=== PATIENT | male | born 1965 | race Hispanic/Latino ===

== ENCOUNTER 2016-10-11 17:08 | Emergency (ER) | payer MEDICARE ==
[2016-10-11 17:08] VITALS: BMI 32.5
[2016-10-11 17:24] VITALS: RESP 18; TEMP 99.5
[2016-10-11 18:17] VITALS: BP 137/96; PULSE 92
[2016-10-11 18:18] VITALS: O2SAT 99
--- NOTE | 2016-10-11 18:18 | C.PDOC ---
History Of Present Illness Patient, a 51 y/o male, presents to the ED with complaints of anxiety and needs his dose of Xanax. Patient states he usually take Xanax 0.25mg every day as needed. He states he left medicine at home and is visiting family. Patient feeling very anxious and just needs one dose. Time Seen by Provider: 10/11/16 17:48 Chief Complaint (Nursing): Anxiety History Per: Patient History/Exam Limitations: no limitations Onset/Duration Of Symptoms: Hrs Current Symptoms Are (Timing): Still Present Suicide/Self Injury Attempted (Context): None Modifying Factor(s): None Associated Symptoms: denies: Suicidal Thoughts, Suicidal Plan Involuntary Hold By: None Additional History Per: Patient Past Medical History Reviewed: Historical Data, Nursing Documentation, Vital Signs Vital Signs: Last Vital Signs Temp 99.5 F 10/11/16 17:20 Pulse 92 H 10/11/16 18:17 Resp 18 10/11/16 18:17 BP 137/96 H 10/11/16 18:17 Pulse Ox 99 10/11/16 18:47 - Medical History PMH: Arthritis, Back Problems, Bipolar Disorder, Depression, Deep Vein Thrombosis (LEFT LEG 2013), HTN, Hypercholesterolemia, Hypothyroidism, Kidney Stones, Pulmonary Embolism (2013), Chronic Kidney Disease, Schizophrenia, Chronic Pain (Neck, Back, and Right Hip) Denies: Hyperthyroidism Surgical History: Cholecystectomy (2013) - [facility] Procedures ANESTH INJEC PERIPH NERV (01/12/14) ANESTH INJECT SYMP NERVE (05/18/14) ANESTH INJECT-SPIN CANAL (09/22/13) CERVICAL SPINE X-RAY NEC (09/22/13) CONTRAST PHLEBOGRAM-LEG (06/17/13) INJECT STEROID (01/26/14) INJECT/INFUSE NEC (01/29/12) INJECT/INFUSE THROMBOLYTIC AGENT (06/17/13) INJECTION INTO JOINT (01/26/14) INTRASPIN NERVE ROOT DIV (10/20/13) LUMBOSAC SPINE X-RAY NEC (05/18/14) OTHER ENDOVASCULAR PROCEDURES ON OTHER VESSELS (06/17/13) PERIPH NERVE DESTRUCTION (10/20/13) PLICATION OF VENA CAVA (06/17/13) SPINAL CANAL INJECT NEC (09/22/13) SYMPATH NERVE INJECT NEC (09/04/11) VENA CAV ANGIOCARDIOGRAM (06/17/13) X-RAY NEC AND NOS (11/24/13) Family History: States: Unknown Family Hx - Social History Hx Tobacco Use: Yes Hx Alcohol Use: No 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) - Immunization History Hx Tetanus Toxoid Vaccination: No Hx Influenza Vaccination: Yes Hx Pneumococcal Vaccination: Yes Review Of Systems Psych: Positive for: Anxiety Physical Exam - Physical Exam Appears: Non-toxic, No Acute Distress, Other (+anxious mood ) Skin: Normal Color, Warm, Dry Head: Atraumatic, Normacephalic Eye(s): bilateral: Normal Inspection Oral Mucosa: Moist Neck: Supple Chest: Symmetrical, No Deformity, No Tenderness Cardiovascular: Rhythm Regular, No Murmur Respiratory: Normal Breath Sounds, No Rales, No Rhonchi, No Wheezing Extremity: Normal ROM Neurological/Psych: Oriented x3, Normal Speech Gait: Steady ED Course And Treatment O2 Sat by Pulse Oximetry: 99 (on RA) Pulse Ox Interpretation: Normal Medical Decision Making Medical Decision Making: Impression: Anxiety NJRx reviewed: 09/17/2016 ALPRAZOLAM 0.5 MG TABLET 120.0 09/14/2016 SUBOXONE 8 MG-2 MG SL FILM 60.0 08/12/2016 ALPRAZOLAM 0.5 MG TABLET 120.0 08/12/2016 SUBOXONE 8 MG-2 MG SL FILM 60.0 Plan/Dispo: Xanax 0.25mg given with relief of symptoms. BP improved. Patient is alert and oriented, calm and cooperative, stable for discharge. Disposition Counseled Patient/Family Regarding: Diagnosis, Need For Followup - Disposition Referrals: Aniket Combs MD [Staff Provider] - Disposition: HOME/ ROUTINE Disposition Time: 18:16 Condition: STABLE Additional Instructions: Follow up with your primary medical doctor or clinic in 2-5 days for further evaluation. 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 - Scribe Statement The provider has reviewed the documentation as recorded by the Scribe (Kristin Vides) All medical record entries made by the Scribe were at my direction and personally dictated by me. I have reviewed the chart and agree that the record accurately reflects my personal performance of the history, physical exam, medical decision making, and the department course for this patient. I have also personally directed, reviewed, and agree with the discharge instructions and disposition.
== END 2016-10-11 18:20 | disposition home or self-care (01) ==
LOC: C.ER 17:08
DX: F41.9 Anxiety disorder, unspecified (principal)

== ENCOUNTER 2016-10-12 10:48 | Emergency (ER) | payer MEDICARE ==
[2016-10-12 10:48] VITALS: BMI 32.5
[2016-10-12 11:00] VITALS: BP 129/90; PULSE 100; RESP 18; TEMP 98.1; O2SAT 97
--- NOTE | 2016-10-12 11:44 | C.PDOC ---
History Of Present Illness Patient, a 51 y/o male, presents to the ED with complaints of anxiety and needs his dose of Xanax. Patient states he usually take Xanax 0.25mg every day as needed. He states he left medicine at home and is visiting family, he cannot get back to his home because of holiday. Patient feeling very anxious and just needs one dose. Patient was just seen in ED yesterday. Time Seen by Provider: 10/12/16 11:27 Chief Complaint (Nursing): Medical Clearance History Per: Patient History/Exam Limitations: no limitations Onset/Duration Of Symptoms: Hrs Current Symptoms Are (Timing): Still Present Severity: Moderate Recent travel outside of the [place]: No Past Medical History Reviewed: Historical Data, Nursing Documentation, Vital Signs Vital Signs: Last Vital Signs Temp 98.1 F 10/12/16 10:58 Pulse 100 H 10/12/16 10:58 Resp 18 10/12/16 10:58 BP 129/90 10/12/16 10:58 Pulse Ox 97 10/12/16 11:49 - Medical History PMH: Anxiety, Arthritis, Back Problems, Bipolar Disorder, Depression, Deep Vein Thrombosis (LEFT LEG 2013), HTN, Hypercholesterolemia, Hypothyroidism, Kidney Stones, Pulmonary Embolism (2013), Chronic Kidney Disease, Schizophrenia, Chronic Pain (Neck, Back, and Right Hip) Surgical History: Cholecystectomy (2013) - [facility] Procedures ANESTH INJEC PERIPH NERV (01/12/14) ANESTH INJECT SYMP NERVE (05/18/14) ANESTH INJECT-SPIN CANAL (09/22/13) CERVICAL SPINE X-RAY NEC (09/22/13) CONTRAST PHLEBOGRAM-LEG (06/17/13) INJECT STEROID (01/26/14) INJECT/INFUSE NEC (01/29/12) INJECT/INFUSE THROMBOLYTIC AGENT (06/17/13) INJECTION INTO JOINT (01/26/14) INTRASPIN NERVE ROOT DIV (10/20/13) LUMBOSAC SPINE X-RAY NEC (05/18/14) OTHER ENDOVASCULAR PROCEDURES ON OTHER VESSELS (06/17/13) PERIPH NERVE DESTRUCTION (10/20/13) PLICATION OF VENA CAVA (06/17/13) SPINAL CANAL INJECT NEC (09/22/13) SYMPATH NERVE INJECT NEC (09/04/11) VENA CAV ANGIOCARDIOGRAM (06/17/13) X-RAY NEC AND NOS (11/24/13) Family History: States: Unknown Family Hx - Social History Hx Tobacco Use: Yes Hx Alcohol Use: No 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) - Immunization History Hx Tetanus Toxoid Vaccination: No Hx Influenza Vaccination: Yes Hx Pneumococcal Vaccination: Yes Review Of Systems Psych: Positive for: Anxiety Physical Exam - Physical Exam Appears: Non-toxic, No Acute Distress, Other (anxious mood) Skin: Warm, Dry Head: Atraumatic, Normacephalic Eye(s): bilateral: Normal Inspection Chest: Symmetrical Respiratory: No Accessory Muscle Use Extremity: Bilateral: Atraumatic, Normal ROM Neurological/Psych: Oriented x3, Normal Speech Gait: Steady ED Course And Treatment O2 Sat by Pulse Oximetry: 97 (room air) Pulse Ox Interpretation: Normal Medical Decision Making Medical Decision Making: Spoke with ER director Dr English who agrees cannot give another dose, based on pain policy. Gave patient information for [facility] and he was understanding. Disposition - Disposition Disposition: HOME/ ROUTINE Disposition Time: 11:50 Condition: STABLE Instructions: Anxiety (ED) - POA Present On Arrival: None - Clinical Impression Clinical Impression: Anxiety, Medication requested - PA / DATA MODELING SPECIALIST / Resident Statement MD/DO has reviewed & agrees with the documentation as recorded. - Scribe Statement The provider has reviewed the documentation as recorded by the Scribe Akash Vinson All medical record entries made by the Scribe were at my direction and personally dictated by me. I have reviewed the chart and agree that the record accurately reflects my personal performance of the history, physical exam, medical decision making, and the department course for this patient. I have also personally directed, reviewed, and agree with the discharge instructions and disposition.
== END 2016-10-12 12:00 | disposition home or self-care (01) ==
LOC: C.ER 10:48
DX: Z76.0 Encounter for issue of repeat prescription (principal); F41.9 Anxiety disorder, unspecified

== ENCOUNTER 2016-10-13 02:16 | Emergency (ER) | payer MEDICAID, MEDICARE ==
[2016-10-13 02:17] VITALS: BMI 32.5
[2016-10-13 02:37] VITALS: RESP 16
--- NOTE | 2016-10-13 04:23 | C.PDOC ---
History Of Present Illness 51 year old male presents to the ED seeking dose of medication in ED for anxiety since he ran out of medications at home- Xanax 0.5 medications. Patient notes a history of depression and has a refill of Xanax 0.5 mg in pharmacy . He admits to being to the ED twice before for similar reasons and requested the same medication. Patient's doctor, Dr. Romero, advised patient to wait for refill of medications or to follow up with psychiatrist. Patient denies any chest pain, shortness or breath, or other complaints at this time. Time Seen by Provider: 10/13/16 03:01 Chief Complaint (Nursing): Med Refill History Per: Patient History/Exam Limitations: no limitations Onset/Duration Of Symptoms: Persistent (depression and anxiety are persistent, visit prompted by running out of medications ) Current Symptoms Are (Timing): Still Present Reports Recently: Seen In ED, Treated By A Physician Recent travel outside of the [place]: No Past Medical History Reviewed: Historical Data, Nursing Documentation, Vital Signs Vital Signs: Last Vital Signs Temp 98.4 F 10/13/16 04:43 Pulse 87 10/13/16 04:43 Resp 16 10/13/16 04:43 BP 147/94 H 10/13/16 04:43 Pulse Ox 98 10/13/16 06:20 - Medical History PMH: Anxiety, Arthritis, Back Problems, Bipolar Disorder, Depression, Deep Vein Thrombosis (LEFT LEG 2013), HTN, Hypercholesterolemia, Hypothyroidism, Kidney Stones, Pulmonary Embolism (2013), Chronic Kidney Disease, Schizophrenia, Chronic Pain (Neck, Back, and Right Hip) Surgical History: Cholecystectomy (2013) - [facility] Procedures ANESTH INJEC PERIPH NERV (01/12/14) ANESTH INJECT SYMP NERVE (05/18/14) ANESTH INJECT-SPIN CANAL (09/22/13) CERVICAL SPINE X-RAY NEC (09/22/13) CONTRAST PHLEBOGRAM-LEG (06/17/13) INJECT STEROID (01/26/14) INJECT/INFUSE NEC (01/29/12) INJECT/INFUSE THROMBOLYTIC AGENT (06/17/13) INJECTION INTO JOINT (01/26/14) INTRASPIN NERVE ROOT DIV (10/20/13) LUMBOSAC SPINE X-RAY NEC (05/18/14) OTHER ENDOVASCULAR PROCEDURES ON OTHER VESSELS (06/17/13) PERIPH NERVE DESTRUCTION (10/20/13) PLICATION OF VENA CAVA (06/17/13) SPINAL CANAL INJECT NEC (09/22/13) SYMPATH NERVE INJECT NEC (09/04/11) VENA CAV ANGIOCARDIOGRAM (06/17/13) X-RAY NEC AND NOS (11/24/13) Family History: States: Unknown Family Hx - Social History Hx Tobacco Use: Yes Hx Alcohol Use: No 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 Negative for : Suicidal ideation Physical Exam - Physical Exam Appears: Non-toxic, No Acute Distress, Other (patient appears anxious ) Skin: Warm, Dry Head: Atraumatic Eye(s): bilateral: Normal Inspection, PERRL, EOMI Oral Mucosa: Moist Neck: Supple Chest: Symmetrical, No Deformity Cardiovascular: Rhythm Regular Respiratory: Normal Breath Sounds, No Rales, No Rhonchi, No Wheezing Extremity: Normal ROM, No Tenderness, Other (Hands tremulous ) Neurological/Psych: Oriented x3, Normal Speech, Normal Cognition Gait: Steady ED Course And Treatment O2 Sat by Pulse Oximetry: 98 Pulse Ox Interpretation: Normal Progress Note: Pt appears very anxious,was given 1 dose of xanax in ED.Pt understands that no further prescription will begiven and he agreed to that. Pt advised to get meds from pharmacy on wednesday and to follow up with his psychiatrist Disposition Counseled Patient/Family Regarding: Diagnosis, Need For Followup, Rx Given - Disposition Disposition: HOME/ ROUTINE Disposition Time: 04:21 Condition: STABLE Additional Instructions: Please get your refill Follow up with PMD for management Return if worse Instructions: Anxiety (ED) - Clinical Impression Clinical Impression: Anxiety, Review of medication - Scribe Statement The provider has reviewed the documentation as recorded by the Scribe Tammi Bui All medical record entries made by the Scribe were at my direction and personally dictated by me. I have reviewed the chart and agree that the record accurately reflects my personal performance of the history, physical exam, medical decision making, and the department course for this patient. I have also personally directed, reviewed, and agree with the discharge instructions and disposition.
[2016-10-13 04:44] VITALS: BP 147/94; PULSE 87; TEMP 98.4
[2016-10-13 06:14] VITALS: O2SAT 98
== END 2016-10-13 04:43 | disposition home or self-care (01) ==
LOC: C.ER 02:16
DX: F41.9 Anxiety disorder, unspecified (principal)

== ENCOUNTER 2016-10-22 11:17 | Inpatient (IN) | payer MEDICARE ==
[2016-10-22 11:18] VITALS: BMI 32.5
--- NOTE | 2016-10-22 11:59 | C.PDOC ---
History Of Present Illness 51 yr old male with PMHx of bipolar disorder, presents to the ER stating he feels like " ending it all and feeling down". Patient denies fever, chest pain, SOB, weakness or numbness. Time Seen by Provider: 10/22/16 11:50 Chief Complaint (Nursing): Psychiatric Evaluation History Per: Patient History/Exam Limitations: no limitations Onset/Duration Of Symptoms: Sudden Onset Current Symptoms Are (Timing): Still Present Past Medical History Reviewed: Historical Data, Nursing Documentation, Vital Signs Vital Signs: Last Vital Signs Temp 98.9 F 10/22/16 13:29 Pulse 77 10/22/16 13:29 Resp 16 10/22/16 13:29 BP 146/91 H 10/22/16 13:29 Pulse Ox 99 10/22/16 13:29 - Medical History PMH: Anxiety, Arthritis, Back Problems, Bipolar Disorder, Depression, Deep Vein Thrombosis (LEFT LEG 2013), HTN, Hypercholesterolemia, Hypothyroidism, Kidney Stones, Pulmonary Embolism (2013), Chronic Kidney Disease, Schizophrenia, Chronic Pain (Neck, Back, and Right Hip) Surgical History: Cholecystectomy (2013) - [facility] Procedures ANESTH INJEC PERIPH NERV (01/12/14) ANESTH INJECT SYMP NERVE (05/18/14) ANESTH INJECT-SPIN CANAL (09/22/13) CERVICAL SPINE X-RAY NEC (09/22/13) CONTRAST PHLEBOGRAM-LEG (06/17/13) INJECT STEROID (01/26/14) INJECT/INFUSE NEC (01/29/12) INJECT/INFUSE THROMBOLYTIC AGENT (06/17/13) INJECTION INTO JOINT (01/26/14) INTRASPIN NERVE ROOT DIV (10/20/13) LUMBOSAC SPINE X-RAY NEC (05/18/14) OTHER ENDOVASCULAR PROCEDURES ON OTHER VESSELS (06/17/13) PERIPH NERVE DESTRUCTION (10/20/13) PLICATION OF VENA CAVA (06/17/13) SPINAL CANAL INJECT NEC (09/22/13) SYMPATH NERVE INJECT NEC (09/04/11) VENA CAV ANGIOCARDIOGRAM (06/17/13) X-RAY NEC AND NOS (11/24/13) Family History: States: No Known Family Hx - Social History Hx Tobacco Use: Yes Hx Alcohol Use: No 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) - Immunization History Hx Tetanus Toxoid Vaccination: No Hx Influenza Vaccination: Yes Hx Pneumococcal Vaccination: Yes Review Of Systems Except As Marked, All Systems Reviewed And Found Negative. Constitutional: Negative for: Fever Cardiovascular: Negative for: Chest Pain Respiratory: Negative for: Shortness of Breath Neurological: Negative for: Weakness, Numbness Psych: Positive for: Suicidal ideation Physical Exam - Physical Exam Appears: Non-toxic, No Acute Distress Skin: Warm, Dry Head: Atraumatic, Normacephalic Oral Mucosa: Moist Chest: Symmetrical, No Tenderness Cardiovascular: Rhythm Regular, No Murmur Respiratory: Normal Breath Sounds, No Rales, No Rhonchi, No Stridor, No Wheezing Extremity: Normal ROM, No Swelling Neurological/Psych: Oriented x3, Normal Speech, Normal Motor ED Course And Treatment - Laboratory Results Result Diagrams: 10/22/16 12:05 10/22/16 12:05 O2 Sat by Pulse Oximetry: 98 (RA ) Pulse Ox Interpretation: Normal Medical Decision Making Medical Decision Making: PLAN: * EKG * Drug Screen * Alcohol Serum * CBC * CMP * Urinalysis ekg nsr [address] t wave changes normal intervals. Disposition - Disposition Disposition: HOSPITALIZED Disposition Time: 13:51 Condition: STABLE - Clinical Impression Clinical Impression: Bipolar 1 disorder - Scribe Statement The provider has reviewed the documentation as recorded by the Anastacia Dyson Provider Attestation: All medical record entries made by the Justinibe were at my direction and personally dictated by me. I have reviewed the chart and agree that the record accurately reflects my personal performance of the history, physical exam, medical decision making, and the department course for this patient. I have also personally directed, reviewed, and agree with the discharge instructions and disposition. Decision To Admit - Pt Status Changed To: Hospital Disposition Of: Inpatient - Admit Certification Admit to Inpatient:: After my assessment, the patient will require hospitalization for at least two midnights. This is because of the severity of symptoms shown, intensity of services needed, and/or the medical risk in this patient being treated as an outpatient. - InPatient: Physician Admission Certification: I certify that this patient requires 2 or more midnights of care for the following reason:: pt with si - . Bed Request Type: Psychiatry Admitting Physician: Marlene Dsouza Patient Diagnosis: Bipolar 1 disorder
[2016-10-22 12:12] LABS: URINE BILIRUBIN NEGATIVE (NEGATIVE); URINE BLOOD NEGATIVE (NEGATIVE); URINE CLARITY Clear (Clear); URINE COLOR Yellow (YELLOW); URINE GLUCOSE (UA) NORMAL (Normal); URINE LEUKOCYTE ESTERASE NEG Leu/uL (Negative); URINE NITRATE NEGATIVE (NEGATIVE); URINE PROTEIN NEGATIVE (NEGATIVE); URINE UROBILINOGEN NORMAL mg/dL (0.2-1.0)
[2016-10-22 12:18] LABS: ALBUMIN 3.7 g/dL (3.5-5.0)
[2016-10-22 12:20] LABS: BASO # 0.1 K/uL (0.0-0.2); EOS # 0.1 K/uL (0.0-0.7); EOS % 1.8 % (0.0-4.0); GFR AFRICAN-AMERICAN > 60; GFR NON-AFRICAN AMERICAN > 60; HEMOGLOBIN 11.2 g/dL (12.0-18.0); LYMPH # 1.4 K/uL (1.0-4.3); LYMPH % 26.8 % (20.0-40.0); MEAN CELL VOLUME 93.7 fL (80.0-94.0); MEAN CORPUSCULAR HEMOGLOBIN 30.8 pg (27.0-31.0); MEAN CORPUSCULAR HGB CONC 32.9 g/dL (33.0-37.0); MEAN PLATELET VOLUME 8.6 fL (7.2-11.7); MONO # 0.4 K/uL (0.0-0.8); NEUT # 3.3 K/uL (1.8-7.0); NEUT % 63.4 % (50.0-75.0); RBC 3.65 Mil/uL (4.40-5.90); RED CELL DISTRIBUTION WIDTH 12.8 % (11.5-14.5); WHITE BLOOD COUNT 5.2 K/uL (4.8-10.8)
[2016-10-22 12:21] LABS: ALB/GLOB RATIO 1.3 (1.0-2.1); ALT/SGPT 37 U/L (21-72); AST/SGOT 22 U/L (17-59); BLOOD UREA NITROGEN 9 mg/dL (9-20); CALCIUM 9.1 mg/dl (8.6-10.4)
[2016-10-22 12:22] LABS: ACETAMINOPHEN < 10.0 ug/mL (10.0-30.0); SALICYLATE < 1.0 mg/dL 1
[2016-10-22] MEDS ORDERED: Potassium Chloride 20 mEq ER Tab PO STA (12:22)
[2016-10-22 12:23] LABS: BARBITURATES, UR NEGATIVE (NEGATIVE)
[2016-10-22 12:26] LABS: OPIATES, UR NEGATIVE (NEGATIVE)
[2016-10-22 12:27] LABS: PHENCYCLIDINE, UR NEGATIVE (NEGATIVE)
[2016-10-22 12:44] LABS: BENZODIAZEPINES, UR POSITIVE (NEGATIVE)
[2016-10-22] MEDS ORDERED: Potassium Chloride 20 mEq ER Tab PO ONE (12:58)
[2016-10-22 13:51] VITALS: O2SAT 98
--- NOTE | 2016-10-22 15:15 | PCM.BM ---
<Lois Chaudhari - Last Filed: 10/22/16 15:14> Treatment Plan Problems - Problems identified on initial assessmt Bipolar Date Initiated: 10/22/16 Time Initiated: 15:15 Assessment reference: NA Status: Active Priority: 1 <Lilian Morales - Last Filed: 10/23/16 10:59> - Diagnosis (1) Bipolar 1 disorder Status: Acute Interventions: 10/23/16 11:00 * Assess/adjust medications daily and /or as needed * See patient on an individual basis 7x/week to assess level of manic behaviors and stability * Discuss risks, benefits, side effects and alternatives of medications * <Che Hein - Last Filed: 10/23/16 11:06> Family Contact Family involvement: Patient does not wish Family/SO involvement - Goals for Treatment Patient goals for treatment: "I just want the right meds." Discharge/Continuing Care - Education Needs Education Needs: Patient Medication, Patient Coping Skills - Discharge Discharge Criteria: Tolerates medication w/o severe side effects Discharge to:: Home - Treatment Team Participation Discussed with Family/SO: No Was Patient/Family/SO present at Treatment Team Meeting: Yes
[2016-10-23] MEDS: Levothyroxine 25 MCG TAB PO SCH (05:36)
[2016-10-23 08:11] VITALS: RESP 20
[2016-10-23 08:28] LABS: BLOOD UREA NITROGEN 14 mg/dL (9-20); GFR AFRICAN-AMERICAN > 60; GFR NON-AFRICAN AMERICAN > 60
[2016-10-23 08:29] LABS: CALCIUM 9.3 mg/dl (8.6-10.4); HDL CHOLESTEROL 51 mg/dL (30-70); MAGNESIUM 2.3 mg/dL (1.6-2.3)
[2016-10-23 08:41] LABS: LDL CHOLESTEROL 54 mg/dL (0-129)
[2016-10-23 09:09] LABS: FREE T4 0.78 ng/dL (0.78-2.19)
[2016-10-23] MEDS ORDERED: Ergocalciferol 50,000 Intl Units Cap PO SCH (10:45)
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
[2016-10-24] MEDS: Levothyroxine 25 MCG TAB PO SCH (05:50)
--- NOTE | 2016-10-24 10:37 | PCM.PYCHPN ---
Psychiatric Progress Note - Psychiatric Progress Note Patient seen today, length of contact: 17 min Patient Chief Complaint: I m feeling hyper Problems Identified/Issues Discussed: Patient seen and evaluated, chart reviewed and discussed with the nurse. Patient reports improvement in his mood and reports improvement in the withdrawal symtoms. He denies any auditory or visual hallucinations, but remained irritable and agitated. He still reports racing of thoughts and flight of ideas. He denies any feelings of hopelessness and helplessness. He is taking medication and denied any side effects. Supportive therapy and psychoeducation were given. Medication Change: Yes (start depakote) Medical Record Reviewed: Yes Mental Status Examination - Cognitive Function Orientation: Person, Place, Situation, Time Memory: Intact Attention: WNL Concentration: Poor Association: WNL Fund of Knowledge: Poor - Mood Mood: Anxious, Other (labile) - Affect Affect: Broad, Other (labile) - Speech Speech: Loud - Formal Thought Process Formal Thought Process: No Impairment - Suicidal Ideation Suicidal Ideation: No - Homicidal Ideation Homicidal Ideation: No Goal/Treatment Plan - Goal/Treatment Plan Need for Continued Stay: Discharge may exacerbated symptoms, Severe functional impairment Progress Toward Problem(s) and Goals/Treatment Plan: Bipolar I Disorder - mixed, severe Sedative, hypnotic and anxiolytic use d/o (benzo) Opioid use d/o in early remission Alcohol use d/o in remission Cocaine use d/o - in remission Bipolar: Abilify 15 mg Depakote 250 mg PO BID Continue other meds Add gabapentin Attend groups and activities Indiv tx w CBT Benzos: Short detox [place] for abstinence - Smoking Cessation Smoking Cessation Initiated: No
[2016-10-24] MEDS: Divalproex 250 mg DR Tab PO SCH (17:10)
[2016-10-25] MEDS: Levothyroxine 25 MCG TAB PO SCH (05:48)
[2016-10-25 09:46] VITALS: BP 140/94; PULSE 78; TEMP 98.2
[2016-10-25] MEDS: Divalproex 250 mg DR Tab PO SCH (09:53)
[2016-10-25] MEDS ORDERED: Pneumococcal 23-Valent Vaccine IM ONE (10:00)
--- NOTE | 2016-10-25 10:39 | PCM.PYCHPN ---
Mental Status Examination - Cognitive Function Orientation: Person, Place, Situation, Time - Mood Mood: Anxious, Other (labile) - Affect Affect: Other (labile) - Formal Thought Process Formal Thought Process: No Impairment
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
--- NOTE | 2016-10-25 12:01 | CARD ---
APPROVED REPORT EKG Measurement Heart [id number] <Conclusion> Normal sinus rhythm Normal ECG
[2016-10-25] MEDS ORDERED: Divalproex 500 mg DR Tab PO SCH (18:00)
== END 2016-10-25 12:30 | disposition home or self-care (01) | DRG 885 ==
LOC: C.ER 11:17 → C.5E 13:49
PROVIDERS: ADMIT Psychiatry & Neurology Psychiatry; ATTEND Psychiatry & Neurology Psychiatry
PROC: HZ2ZZZZ Detoxification Services for Substance Abuse Treatment (ICD-10-PCS; principal; 2016-10-22)
DX: F31.63 Bipolar disorder, current episode mixed, severe, without psychotic features (principal); R45.851 Suicidal ideations; I12.9 Hypertensive chronic kidney disease with stage 1 through stage 4 chronic kidney disease, or unspecified chronic kidney disease; F13.90 Sedative, hypnotic, or anxiolytic use, unspecified, uncomplicated; F10.21 Alcohol dependence, in remission; F11.21 Opioid dependence, in remission; F14.21 Cocaine dependence, in remission; E03.9 Hypothyroidism, unspecified; F17.210 Nicotine dependence, cigarettes, uncomplicated; E78.00 Pure hypercholesterolemia, unspecified; N18.9 Chronic kidney disease, unspecified; Z96.641 Presence of right artificial hip joint; F20.9 Schizophrenia, unspecified; Z79.899 Other long term (current) drug therapy; Z86.711 Personal history of pulmonary embolism; Z87.442 Personal history of urinary calculi

== ENCOUNTER 2016-12-15 12:01 | Emergency (ER) | payer MEDICARE ==
[2016-12-15 12:01] VITALS: BMI 32.5
[2016-12-15 12:12] VITALS: BP 127/87; RESP 18; TEMP 98.7; O2SAT 98
--- NOTE | 2016-12-15 12:15 | C.PDOC ---
History Of Present Illness 51M c/o left hip pain after he missed a 5inch drop off while walking and came down forcefully on his left leg. no fall. he denies taking anything for pain at home. he reports hx of arthritis and right hip replacement. he says "I need one on the left too." Time Seen by Provider: 12/15/16 12:13 Chief Complaint (Nursing): Hip Pain Past Medical History Vital Signs: Last Vital Signs Temp 98.7 F 12/15/16 12:09 Pulse 97 H 12/15/16 12:09 Resp 18 12/15/16 12:09 BP 127/87 12/15/16 12:09 Pulse Ox 98 12/15/16 12:28 - Medical History PMH: Anxiety, Arthritis, Back Problems, Bipolar Disorder, Depression, Deep Vein Thrombosis (LEFT LEG 2013), HTN, Hypercholesterolemia, Hypothyroidism, Kidney Stones, Pulmonary Embolism (2013), Chronic Kidney Disease, Schizophrenia, Chronic Pain (Neck, Back, and Right Hip) Denies: Diabetes, Hepatitis, HIV, Hyperthyroidism, Seizures, Sexually Transmitted Disease Surgical History[facility] ANESTH INJEC PERIPH NERV (01/12/14) ANESTH INJECT SYMP NERVE (05/18/14) ANESTH INJECT-SPIN CANAL (09/22/13) CERVICAL SPINE X-RAY NEC (09/22/13) CONTRAST PHLEBOGRAM-LEG (06/17/13) DETOXIFICATION SERVICES FOR SUBSTANCE ABUSE TREATMENT (10/22/16) INJECT STEROID (01/26/14) INJECT/INFUSE NEC (01/29/12) INJECT/INFUSE THROMBOLYTIC AGENT (06/17/13) INJECTION INTO JOINT (01/26/14) INTRASPIN NERVE ROOT DIV (10/20/13) LUMBOSAC SPINE X-RAY NEC (05/18/14) OTHER ENDOVASCULAR PROCEDURES ON OTHER VESSELS (06/17/13) PERIPH NERVE DESTRUCTION (10/20/13) PLICATION OF VENA CAVA (06/17/13) SPINAL CANAL INJECT NEC (09/22/13) SYMPATH NERVE INJECT NEC (09/04/11) VENA CAV ANGIOCARDIOGRAM (06/17/13) X-RAY NEC AND NOS (11/24/13) Family History: States: Other Other Family History: nc - Social History Hx Tobacco Use: Yes Hx Alcohol Use: No Hx Substance Use: No - Immunization History Hx Tetanus Toxoid Vaccination: No Hx Influenza Vaccination: Yes Hx Pneumococcal Vaccination: Yes Review Of Systems Constitutional: Negative for: Fever, Chills, Weakness, Malaise Cardiovascular: Negative for: Chest Pain Respiratory: Negative for: Shortness of Breath Gastrointestinal: Negative for: Vomiting, Abdominal Pain Neurological: Negative for: Weakness, Numbness Physical Exam - Physical Exam Appears: Well, Non-toxic, No Acute Distress Skin: Warm, Dry Head: Atraumatic Cardiovascular: Rhythm Regular Respiratory: No Decreased Breath Sounds, No Accessory Muscle Use Extremity: Normal ROM (left hip nl rom. pain w internal rotation. LLE NVI.), No Deformity, No Swelling Neurological/Psych: Oriented x3, Normal Motor, Normal Sensation, Other (no focl deficits) ED Course And Treatment O2 Sat by Pulse Oximetry: 98 Medical Decision Making Medical Decision Making: xr left hip and ap pelvis- no acute fracture rec f/u w pcp and ortho Disposition - Disposition Disposition: HOME/ ROUTINE Disposition Time: 12:46 Condition: STABLE Forms: [facility] (South African) - Clinical Impression Clinical Impression: Hip pain
[2016-12-15 12:58] VITALS: PULSE 88
--- NOTE | 2016-12-15 13:16 | RAD ---
PROCEDURE: Left hip dated 12/15/2016. HISTORY: pain COMPARISON: Comparison made with prior radiographs of the pelvis apparent right hip 04/26/2014. Comparison also made with CT scan abdomen pelvis 10/29/2015 which image the pelvis and both hips in 3 planes FINDINGS: BONES: Right total hip arthroplasty unchanged from prior CT scan but new since prior pelvis and right hip radiographs. . Hardware is intact. . Satisfactory alignment. No evidence of acute displaced fracture nor dislocation. If symptoms persist or occult fracture suspected clinically consider follow-up MRI of the left hip. JOINTS: Degenerative arthritis left hip SOFT TISSUES: Normal. OTHER FINDINGS: Note again made of metallic surgical clip overlying the mid upper true pelvis IMPRESSION: Right total hip replacement. Hardware appears intact without evidence of failure. Satisfactory alignment. No definitive evidence of acute displaced fracture nor dislocation. Degenerative arthritis left hip. . Followup studies such as MRI could be performed if symptoms persist or occult fracture suspected clinically
== END 2016-12-15 12:58 | disposition home or self-care (01) ==
LOC: C.ER 12:01
DX: M25.552 Pain in left hip (principal)
CPT/HCPCS: 73502; 96372; 99284; J1885

== ENCOUNTER 2016-12-29 16:16 | Emergency (ER) | payer MEDICARE ==
[2016-12-29 16:16] VITALS: BMI 32.5
[2016-12-29 16:22] VITALS: TEMP 98.7
--- NOTE | 2016-12-29 16:38 | C.PDOC ---
History Of Present Illness 51M presents requesting dose of clonazepam. he says does not have access to his current prescription as he left his pills at a house from which he recently moved and cannot access for several days. he says he had an episode of feeling "shaky" and "jittery" earlier today. Time Seen by Provider: 12/29/16 16:36 Chief Complaint (Nursing): Anxiety Past Medical History Vital Signs: Last Vital Signs Temp 98.7 F 12/29/16 16:20 Pulse 110 H 12/29/16 16:20 Resp 20 12/29/16 16:20 BP 165/85 H 12/29/16 16:20 Pulse Ox 97 12/29/16 16:38 - Medical History PMH: Anxiety, Arthritis, Back Problems, Bipolar Disorder, Depression, Deep Vein Thrombosis (LEFT LEG 2013), HTN, Hypercholesterolemia, Hypothyroidism, Kidney Stones, Pulmonary Embolism (2013), Chronic Kidney Disease, Schizophrenia, Chronic Pain (Neck, Back, and Right Hip) Denies: Diabetes, Hepatitis, HIV, Hyperthyroidism, Seizures, Sexually Transmitted Disease Surgical History: Cholecystectomy (2013) - [facility] Procedures ANESTH INJEC PERIPH NERV (01/12/14) ANESTH INJECT SYMP NERVE (05/18/14) ANESTH INJECT-SPIN CANAL (09/22/13) CERVICAL SPINE X-RAY NEC (09/22/13) CONTRAST PHLEBOGRAM-LEG (06/17/13) DETOXIFICATION SERVICES FOR SUBSTANCE ABUSE TREATMENT (10/22/16) INJECT STEROID (01/26/14) INJECT/INFUSE NEC (01/29/12) INJECT/INFUSE THROMBOLYTIC AGENT (06/17/13) INJECTION INTO JOINT (01/26/14) INTRASPIN NERVE ROOT DIV (10/20/13) LUMBOSAC SPINE X-RAY NEC (05/18/14) OTHER ENDOVASCULAR PROCEDURES ON OTHER VESSELS (06/17/13) PERIPH NERVE DESTRUCTION (10/20/13) PLICATION OF VENA CAVA (06/17/13) SPINAL CANAL INJECT NEC (09/22/13) SYMPATH NERVE INJECT NEC (09/04/11) VENA CAV ANGIOCARDIOGRAM (06/17/13) X-RAY NEC AND NOS (11/24/13) Family History: States: Other Other Family History: nc - Social History Hx Tobacco Use: Yes Hx Alcohol Use: No Hx Substance Use: No - Immunization History Hx Tetanus Toxoid Vaccination: No Hx Influenza Vaccination: Yes Hx Pneumococcal Vaccination: Yes Review Of Systems Constitutional: Negative for: Fever Cardiovascular: Negative for: Chest Pain Respiratory: Negative for: Cough, Shortness of Breath Gastrointestinal: Negative for: Vomiting Neurological: Negative for: Confusion, Seizures, Altered Mental Status, Headache Psych: Negative for: Suicidal ideation Physical Exam - Physical Exam Appears: Well, Non-toxic, No Acute Distress Head: Atraumatic Eye(s): bilateral: PERRL Oral Mucosa: Moist Cardiovascular: Rhythm Regular Respiratory: No Decreased Breath Sounds, No Accessory Muscle Use Neurological/Psych: Oriented x3, Normal Motor, Normal Sensation ED Course And Treatment O2 Sat by Pulse Oximetry: 97 Disposition - Disposition Referrals: Anirudh Woo MD [Staff Provider] - Disposition: HOME/ ROUTINE Disposition Time: 17:06 Condition: STABLE Forms: General Discharge Instructions, [facility] (Slovak) - Clinical Impression Clinical Impression: Chronically on benzodiazepine therapy
[2016-12-29 17:25] VITALS: BP 138/85; PULSE 89; RESP 17; O2SAT 98
== END 2016-12-29 17:26 | disposition home or self-care (01) ==
LOC: C.ER 16:16
DX: Z04.8 Encounter for examination and observation for other specified reasons (principal)

== ENCOUNTER 2017-03-31 08:39 | Emergency (ER) | payer MEDICARE ==
[2017-03-31 08:39] VITALS: BMI 32.5
--- NOTE | 2017-03-31 09:45 | C.PDOC ---
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 pt was seen at [facility] last night and discharged with no apprent fx of hip,. pt sts he cannot bear weight and is in excruciating pain. (Brittaney Wang) History Per: Patient History/Exam Limitations: no limitations Onset/Duration Of Symptoms: Days Current Symptoms Are (Timing): Still Present <Brittaney Wang - Last Filed: 03/31/17 19:54> <Kehinde French - Last Filed: 03/31/17 23:06> Time Seen by Provider: 03/31/17 09:09 Chief Complaint (Nursing): Hip Pain Past Medical History Reviewed: Historical Data, Nursing Documentation, Vital Signs - Medical History PMH: Anxiety, Arthritis, Back Problems, Bipolar Disorder, Depression, Deep Vein Thrombosis (LEFT LEG 2013), HTN, Hypercholesterolemia, Hypothyroidism, Kidney Stones, Pulmonary Embolism (2013), Chronic Kidney Disease, Schizophrenia, Chronic Pain (Neck, Back, and Right Hip) Surgical History: Cholecystectomy (2013) Family History: States: No Known Family Hx - Social History Hx Tobacco Use: Yes Hx Alcohol Use: No Hx Substance Use: No - Immunization History Hx Tetanus Toxoid Vaccination: No Hx Influenza Vaccination: Yes Hx Pneumococcal Vaccination: Yes <Brittaney Wang - Last Filed: 03/31/17 19:54> Vital Signs: Last Vital Signs Temp 100.7 F H 03/31/17 22:16 Pulse 97 H 03/31/17 22:16 Resp 18 03/31/17 22:16 BP 145/88 03/31/17 22:16 Pulse Ox 98 03/31/17 22:16 - [facility] Procedures ANESTH INJEC PERIPH NERV (01/12/14) ANESTH INJECT SYMP NERVE (05/18/14) ANESTH INJECT-SPIN CANAL (09/22/13) CERVICAL SPINE X-RAY NEC (09/22/13) CONTRAST PHLEBOGRAM-LEG (06/17/13) DETOXIFICATION SERVICES FOR SUBSTANCE ABUSE TREATMENT (10/22/16) INJECT STEROID (01/26/14) INJECT/INFUSE NEC (01/29/12) INJECT/INFUSE THROMBOLYTIC AGENT (06/17/13) INJECTION INTO JOINT (01/26/14) INTRASPIN NERVE ROOT DIV (10/20/13) LUMBOSAC SPINE X-RAY NEC (05/18/14) OTHER ENDOVASCULAR PROCEDURES ON OTHER VESSELS (06/17/13) PERIPH NERVE DESTRUCTION (10/20/13) PLICATION OF VENA CAVA (06/17/13) SPINAL CANAL INJECT NEC (09/22/13) SYMPATH NERVE INJECT NEC (09/04/11) VENA CAV ANGIOCARDIOGRAM (06/17/13) X-RAY NEC AND NOS (11/24/13) Review Of Systems Cardiovascular: Negative for: Chest Pain Respiratory: Negative for: Shortness of Breath Gastrointestinal: Negative for: Abdominal Pain Musculoskeletal: Positive for: Leg Pain. Negative for: Neck Pain, Back Pain Skin: Negative for: Rash Neurological: Negative for: Weakness, Numbness <Brittaney Wang - Last Filed: 03/31/17 19:54> Physical Exam <Brittaney Wang - Last Filed: 03/31/17 19:54> <Kehinde French - Last Filed: 03/31/17 23:06> - Physical Exam Additional Physical Exam Comments: Constitutional: No acute distress. WDWN. Head: Normocephalic. Atraumatic. Eyes: PERRL. EOMI. ENT: Moist mucous membranes. Neck: Supple. Back: No CVA and no mid-line tenderness. Musculoskeletal: Tenderness to right groin and right hip. 2+femoral pulses. Right leg mildly externally rotated. Skin: No rash. Neurologic: Alert, no focal deficit. Normal motor. Normal sensation (Brittaney Wang) ED Course And Treatment - Laboratory Results Result Diagrams: 03/31/17 18:05 O2 Sat by Pulse Oximetry: 100 (RA) Pulse Ox Interpretation: Normal <Brittaney Wang - Last Filed: 03/31/17 19:54> - Laboratory Results Result Diagrams: 03/31/17 18:05 <Manolo,Jonatan - Last Filed: 03/31/17 23:06> Medical Decision Making <Brittaney Wang - Last Filed: 03/31/17 19:54> <Kehinde French E - Last Filed: 03/31/17 23:06> Medical Decision Making: pt with hip pain s/p fall, hx recent hip fx with hardware, then infected, and partly removed, message left for Dr Kayden Schuler with no response. , message left for Dr Hurtado. will transfer pt to [facility] to Dr Kayden Schuler, await bed assignment for direct admit. . (Brittaney Wang) Disposition Discussed With : Anirudh Woo - Disposition Disposition Time: 16:54 <Brittaney Wang - Last Filed: 03/31/17 19:54> <Kehinde French E - Last Filed: 03/31/17 23:06> - Disposition Disposition: OTHER INSTITUTION Condition: STABLE Forms: [employer] (Lithuanian) - Clinical Impression Clinical Impression: Femur fracture, right - PA / DESK EDITOR / Resident Statement MD/DO has reviewed & agrees with the documentation as recorded. - Scribe Statement The provider has reviewed the documentation as recorded by the Scribe <Brittaney Wang - Last Filed: 03/31/17 19:54> <Kehinde French E - Last Filed: 03/31/17 23:06> - Scribe Statement Marlon Bardales All medical record entries made by the Scribe were at my direction and personally dictated by me. I have reviewed the chart and agree that the record accurately reflects my personal performance of the history, physical exam, medical decision making, and the department course for this patient. I have also personally directed, reviewed, and agree with the discharge instructions and disposition. (Brittaney Wang) Addendum <Brittaney Wang - Last Filed: 03/31/17 19:54> <Kehinde French E - Last Filed: 03/31/17 23:06> Addendum: 03/31/17 23:04 Patient was signed over to Dr. French at 7 pm pending transfer for right hip fracture. Patient was seen and examined, asking for pain medication. Patient was re-evaluated at 10:30 prior to transfer, given pain medication per request. Patient transferred out at approximately 10:45pm. No other physical complaints prior to transfer. (Kehinde French)
[2017-03-31] MEDS ORDERED: Morphine 4 MG/ML VIAL ONE ×2 (10:10→13:54)
--- NOTE | 2017-03-31 15:28 | CT ---
PROCEDURE: CT right hip HISTORY: pain s/p fall, hx infected hardware removed COMPARISON: Not available TECHNIQUE: 2.5 mm contiguous axial sections were acquired through the right hip. Sagittal and coronal images were reformatted from the axial scan. FINDINGS: The patient is status post right hip arthroplasty. The orthopedic hardware appears intact. . There is a comminuted fracture of the proximal femur. The fracture extends from approximately 7 cm distal to the distal aspect of the femoral prosthesis, to the intertrochanteric portion of the femur. There is mild displacement of the fracture, particularly proximally. There are mildly displaced shards of cement adjacent to the greater trochanter. There is no acetabular fracture appreciated. There is no other abnormality of the visualized portions of the right hemipelvis. IMPRESSION: Right hip arthroplasty. Comminuted mildly displaced proximal right femoral fracture. Fracture extends obliquely from approximately 7 cm distal to the distal tip of the femoral prosthesis to the intertrochanteric region of the hip.
--- NOTE | 2017-03-31 15:57 | RAD ---
PROCEDURE: Right Knee Radiographs. HISTORY: s/p fall COMPARISON: None. FINDINGS: BONES: Normal. No fracture. JOINTS: Normal. No osteoarthritis. JOINT EFFUSION: None. OTHER FINDINGS: None. IMPRESSION: Normal radiographs of the right knee.
[2017-03-31] MEDS ORDERED: HYDROmorphone 1 mg/ml ISec IVP STA ×3 (15:58→22:21)
--- NOTE | 2017-03-31 16:03 | RAD ---
PROCEDURE: Right Hip Radiographs. HISTORY: hx infected hardware, removed with spacer COMPARISON: None. FINDINGS: BONES: Patient is status post right hip arthroplasty with reported removal of hardware placement of spacer. . There is comminuted fracture of the proximal femur oriented obliquely adjacent to the prosthesis. The fracture is mildly displaced. There is apparent comminution. There is no other fracture identified. . JOINTS: As above. SOFT TISSUES: Normal. OTHER FINDINGS: None. IMPRESSION: Comminuted oblique mildly displaced proximal right femoral fracture. Status post removal of hardware from right hip arthroplasty and placement of spacer.
[2017-03-31] MEDS ORDERED: WATER IVPB STA (16:53)
[2017-03-31] MEDS ORDERED: CEFTRIAXONE IVPB STA (16:53)
[2017-03-31] MEDS ORDERED: DEXTROS IVPB STA (16:53)
[2017-03-31] MEDS ORDERED: DEXTROSE 5% IVPB STA (16:53)
[2017-03-31] MEDS ORDERED: cefTRIAXone 2 GM in Sodium Chloride 0.9% 100 ML IVPB STA (18:01)
[2017-03-31 18:09] LABS: BASO # 0.1 K/uL (0.0-0.2); EOS # 0.1 K/uL (0.0-0.7); EOS % 1.1 % (0.0-4.0); HEMATOCRIT 31.3 % (35.0-51.0); LYMPH # 1.2 K/uL (1.0-4.3); LYMPH % 16.6 % (20.0-40.0); MEAN CORPUSCULAR HEMOGLOBIN 29.7 pg (27.0-31.0); MEAN CORPUSCULAR HGB CONC 32.8 g/dL (33.0-37.0); MEAN PLATELET VOLUME 8.4 fL (7.2-11.7); MONO # 0.6 K/uL (0.0-0.8); MONO % 8.5 % (0.0-10.0); WHITE BLOOD COUNT 7.3 K/uL (4.8-10.8)
[2017-03-31 18:18] LABS: MEAN CELL VOLUME 90.3 fL (80.0-94.0)
[2017-03-31 21:19] VITALS: O2SAT 98
[2017-03-31 22:18] VITALS: BP 145/88; PULSE 97; RESP 18; TEMP 100.7
[2017-04-01] MEDS ORDERED: Levothyroxine 25 MCG TAB PO SCH (10:00)
== END 2017-03-31 23:04 | disposition short-term general hospital (02) ==
LOC: C.ER 08:39 → UNDOADMOB 16:52 → C.9E 16:52 → C.ER 23:04
DX: S72.91XG Unspecified fracture of right femur, subsequent encounter for closed fracture with delayed healing (principal); W19.XXXD Unspecified fall, subsequent encounter
CPT/HCPCS: 73502; 73562; 73700; 85025; 96372; 96374; 96375; 96376; 99285; J0696; J1170; J2270

== ENCOUNTER 2017-06-06 16:52 | Emergency (ER) | payer MEDICARE ==
[2017-06-06 16:52] VITALS: BMI 32.5
[2017-06-06 17:40] VITALS: RESP 18; TEMP 98.5; O2SAT 97
[2017-06-06] MEDS ORDERED: Naproxen 550 mg Tab PO STA (19:12)
[2017-06-06] MEDS ORDERED: Naproxen 550 mg Tab PO ONE (19:30)
[2017-06-06] MEDS ORDERED: Bacitracin 500 Units/gm Oint Foilpak UD TOP ONE (19:32)
--- NOTE | 2017-06-06 20:00 | C.PDOC ---
History Of Present Illness 51yo male comes in with complaints of chronic hip pain s/p surgery 62 days ago. Patient states hip pain improved, but now he is experiencing right knee pain x50 days. Denies numbness/weakness. Time Seen by Provider: 06/06/17 18:18 Chief Complaint (Nursing): Lower Extremity Problem/Injury History Per: Patient History/Exam Limitations: no limitations Past Medical History Reviewed: Historical Data, Nursing Documentation, Vital Signs Vital Signs: Last Vital Signs Temp 98.5 F 06/06/17 17:34 Pulse 82 06/06/17 20:05 Resp 18 06/06/17 20:05 BP 120/72 06/06/17 20:05 Pulse Ox 97 06/06/17 20:05 - Medical History PMH: Anxiety, Arthritis, Back Problems, Bipolar Disorder, Depression, Deep Vein Thrombosis (LEFT LEG 2013), HTN, Hypercholesterolemia, Hypothyroidism, Kidney Stones, Pulmonary Embolism (2013), Chronic Kidney Disease, Schizophrenia, Chronic Pain (Neck, Back, and Right Hip) Denies: Diabetes, Hepatitis, HIV, Hyperthyroidism, Seizures, Sexually Transmitted Disease Surgical History: Cholecystectomy (2013) - [facility] Procedures ANESTH INJEC PERIPH NERV (01/12/14) ANESTH INJECT SYMP NERVE (05/18/14) ANESTH INJECT-SPIN CANAL (09/22/13) CERVICAL SPINE X-RAY NEC (09/22/13) CONTRAST PHLEBOGRAM-LEG (06/17/13) DETOXIFICATION SERVICES FOR SUBSTANCE ABUSE TREATMENT (10/22/16) INJECT STEROID (01/26/14) INJECT/INFUSE NEC (01/29/12) INJECT/INFUSE THROMBOLYTIC AGENT (06/17/13) INJECTION INTO JOINT (01/26/14) INTRASPIN NERVE ROOT DIV (10/20/13) LUMBOSAC SPINE X-RAY NEC (05/18/14) OTHER ENDOVASCULAR PROCEDURES ON OTHER VESSELS (06/17/13) PERIPH NERVE DESTRUCTION (10/20/13) PLICATION OF VENA CAVA (06/17/13) SPINAL CANAL INJECT NEC (09/22/13) SYMPATH NERVE INJECT NEC (09/04/11) VENA CAV ANGIOCARDIOGRAM (06/17/13) X-RAY NEC AND NOS (11/24/13) Family History: States: No Known Family Hx - Social History Hx Tobacco Use: Yes Hx Alcohol Use: No Hx Substance Use: No - Immunization History Hx Tetanus Toxoid Vaccination: No Hx Influenza Vaccination: Yes Hx Pneumococcal Vaccination: Yes Review Of Systems Musculoskeletal: Positive for: Other (R hip and R knee pain) Neurological: Negative for: Weakness, Numbness Physical Exam - Physical Exam Appears: Well, Non-toxic, No Acute Distress Skin: Warm, Dry, No Rash Extremity: No Tenderness, No Calf Tenderness, Capillary Refill (<2 seconds), No Deformity, No Swelling, Other (large well healed incision to right hip. FROM to B/L lower extremities.) Pulses: Left Femoral: Normal, Right Femoral: Normal, Left Dorsalis Pedis: Normal , Right Dorsalis Pedis: Normal Neurological/Psych: Oriented x3, Normal Speech ED Course And Treatment O2 Sat by Pulse Oximetry: 97 (RA) Pulse Ox Interpretation: Normal Progress Note: Patient treated with Morphine, Bacitracin and Naproxen. Disposition - Disposition Referrals: Anirudh Woo MD [Staff Provider] - Disposition: HOME/ ROUTINE Disposition Time: 19:58 Condition: IMPROVED Additional Instructions: Follow up with the medical doctor with 1-2 days. return if worsened. Instructions: Hip Pain Forms: [employer] (Eritrean) - Clinical Impression Clinical Impression: Knee pain, Hip pain - Scribe Statement The provider has reviewed the documentation as recorded by the Scribe (Valentin Ly) All medical record entries made by the Scribe were at my direction and personally dictated by me. I have reviewed the chart and agree that the record accurately reflects my personal performance of the history, physical exam, medical decision making, and the department course for this patient. I have also personally directed, reviewed, and agree with the discharge instructions and disposition.
[2017-06-06 20:07] VITALS: BP 120/72; PULSE 82
== END 2017-06-06 20:06 | disposition home or self-care (01) ==
LOC: C.ER 16:52
DX: M25.561 Pain in right knee (principal); M25.551 Pain in right hip; E78.00 Pure hypercholesterolemia, unspecified; I12.9 Hypertensive chronic kidney disease with stage 1 through stage 4 chronic kidney disease, or unspecified chronic kidney disease; N18.9 Chronic kidney disease, unspecified; E03.9 Hypothyroidism, unspecified; Z86.711 Personal history of pulmonary embolism; Z86.718 Personal history of other venous thrombosis and embolism; Z72.0 Tobacco use
CPT/HCPCS: 96372; 99284; J2270

== ENCOUNTER 2017-07-09 09:37 | Emergency (ER) | payer MEDICARE ==
[2017-07-09 09:38] VITALS: BMI 32.5
--- NOTE | 2017-07-09 09:51 | C.PDOC ---
History Of Present Illness Patient is a 52 y/o male with a PMHx of hip surgery s/p infection, currently on amoxicillin. He presents to the ER today complaining of a right-sided toothache for 3 days. States he has no fever, and is due to see a dentist. No other complaints at this time. Time Seen by Provider: 07/09/17 09:46 Chief Complaint (Nursing): Dental Pain History Per: Patient History/Exam Limitations: no limitations Onset/Duration Of Symptoms: Days (x3) Current Symptoms Are (Timing): Still Present Past Medical History Reviewed: Historical Data, Nursing Documentation, Vital Signs Vital Signs: Last Vital Signs Temp 98.5 F 07/09/17 09:53 Pulse 115 H 07/09/17 09:53 Resp 20 07/09/17 09:53 BP 110/67 07/09/17 09:53 Pulse Ox 97 07/09/17 11:26 - Medical History PMH: Anxiety, Arthritis, Back Problems, Bipolar Disorder, Depression, Deep Vein Thrombosis (LEFT LEG 2013), HTN, Hypercholesterolemia, Hypothyroidism, Kidney Stones, Pulmonary Embolism (2013), Chronic Kidney Disease, Schizophrenia, Chronic Pain (Neck, Back, and Right Hip) Denies: Diabetes, Hepatitis, HIV, Hyperthyroidism, Seizures, Sexually Transmitted Disease Surgical History: Cholecystectomy (2013) - [facility] Procedures ANESTH INJEC PERIPH NERV (01/12/14) ANESTH INJECT SYMP NERVE (05/18/14) ANESTH INJECT-SPIN CANAL (09/22/13) CERVICAL SPINE X-RAY NEC (09/22/13) CONTRAST PHLEBOGRAM-LEG (06/17/13) DETOXIFICATION SERVICES FOR SUBSTANCE ABUSE TREATMENT (10/22/16) INJECT STEROID (01/26/14) INJECT/INFUSE NEC (01/29/12) INJECT/INFUSE THROMBOLYTIC AGENT (06/17/13) INJECTION INTO JOINT (01/26/14) INTRASPIN NERVE ROOT DIV (10/20/13) LUMBOSAC SPINE X-RAY NEC (05/18/14) OTHER ENDOVASCULAR PROCEDURES ON OTHER VESSELS (06/17/13) PERIPH NERVE DESTRUCTION (10/20/13) PLICATION OF VENA CAVA (06/17/13) SPINAL CANAL INJECT NEC (09/22/13) SYMPATH NERVE INJECT NEC (09/04/11) VENA CAV ANGIOCARDIOGRAM (06/17/13) X-RAY NEC AND NOS (11/24/13) Family History: States: Unknown Family Hx - Social History Hx Tobacco Use: Yes Hx Alcohol Use: No Hx Substance Use: No - Immunization History Hx Tetanus Toxoid Vaccination: No Hx Influenza Vaccination: Yes Hx Pneumococcal Vaccination: Yes Review Of Systems Except As Marked, All Systems Reviewed And Found Negative. Constitutional: Negative for: Fever, Chills ENT: Positive for: Other (right dental pain) Physical Exam - Physical Exam Appears: Non-toxic, No Acute Distress Skin: Normal Color, Warm, Dry, No Rash Head: Atraumatic, Normacephalic Eye(s): bilateral: Normal Inspection, PERRL, EOMI Oral Mucosa: Moist Teeth: Caries (Right side with multiple caries), Other (Minimal right sided swelling, no buccalswelling or fluctuance noted) Gingiva: Normal Appearing, No Abscess Neck: Normal ROM, Supple Neurological/Psych: Oriented x3, Normal Speech ED Course And Treatment O2 Sat by Pulse Oximetry: 97 (RA) Pulse Ox Interpretation: Normal Medical Decision Making Medical Decision Making: Impression: Toothache Time: 10:05 Plan: Patient treated with IM toradol and initial dose of Augmentin in the ED Patient is medically stable. Advised to follow up with dentist in 1-2 days without fail Patient provided with prescriptions for Augmentin and Naproxen Disposition Counseled Patient/Family Regarding: Diagnosis, Need For Followup, Rx Given - Disposition Referrals: [facility] [Outside] [place] [facility] [employer] [Outside] Disposition: HOME/ ROUTINE Disposition Time: 10:12 Condition: STABLE Additional Instructions: please see you dentist. return to er with worsening symptoms or concerns. Prescriptions: Amoxicillin/Clavulanate [Augmentin 875 MG-125 MG] 1 tab PO BID #14 tab Naproxen [Naprosyn] 500 mg PO BID PRN #14 tablet PRN Reason: Pain, Mild (1-3) Instructions: Tooth Abscess (DC), Dental Pain Forms: [employer] (Kazakh) - Clinical Impression Clinical Impression: Toothache - Scribe Statement The provider has reviewed the documentation as recorded by the Scribe (Maria Isabel Staley) Provider Attestation: All medical record entries made by the Scribe were at my direction and personally dictated by me. I have reviewed the chart and agree that the record accurately reflects my personal performance of the history, physical exam, medical decision making, and the department course for this patient. I have also personally directed, reviewed, and agree with the discharge instructions and disposition.
[2017-07-09 09:54] VITALS: BP 110/67; PULSE 115; RESP 20; TEMP 98.5; O2SAT 97
[2017-07-09] MEDS ORDERED: Amoxicillin-Clav 875-125 mg Tab PO STA (10:06)
[2017-07-09] MEDS ORDERED: Amoxicillin-Clav 875-125 mg Tab PO ONE (10:13)
== END 2017-07-09 10:16 | disposition home or self-care (01) ==
LOC: C.ER 09:37
DX: K08.89 Other specified disorders of teeth and supporting structures (principal); F17.210 Nicotine dependence, cigarettes, uncomplicated
CPT/HCPCS: 96372; 99283; J1885

== ENCOUNTER 2017-09-18 11:13 | Emergency (ER) | payer MEDICARE ==
[2017-09-18 11:13] VITALS: BMI 32.5
[2017-09-18 11:27] VITALS: RESP 18
--- NOTE | 2017-09-18 11:41 | C.PDOC ---
History Of Present Illness 52 year old male presents to the ED requesting for pain killers for his headache and neck pain because his doctor is out on vacation. Patient states he has a history of multiple surgeries and sees pain management, but doctor is on vacation. He complains of posterior headache and neck pain that radiates into his arm, he reports he has 3 herniated disks in neck and was told needed epidural or surgery. Patient states imitrex and tramadol do not help his pain. Patient does not want narcotics PMD: Garret Marcial Pain management: Dr Mcbride Time Seen by Provider: 09/18/17 11:26 Chief Complaint (Nursing): Medical Clearance History Per: Patient History/Exam Limitations: no limitations Onset/Duration Of Symptoms: Days Current Symptoms Are (Timing): Still Present Past Medical History Reviewed: Historical Data, Nursing Documentation, Vital Signs Vital Signs: Last Vital Signs Temp 98.7 F 09/18/17 12:20 Pulse 62 09/18/17 12:20 Resp 18 09/18/17 12:20 BP 97/61 L 09/18/17 12:20 Pulse Ox 95 09/18/17 12:20 - Medical History PMH: Anxiety, Arthritis, Back Problems, Bipolar Disorder, Depression, Deep Vein Thrombosis (LEFT LEG 2013), HTN, Hypercholesterolemia, Hypothyroidism, Kidney Stones, Pulmonary Embolism (2013), Chronic Kidney Disease, Schizophrenia, Chronic Pain (Neck, Back, and Right Hip) Surgical History: Cholecystectomy (2013) - [facility] Procedures ANESTH INJEC PERIPH NERV (01/12/14) ANESTH INJECT SYMP NERVE (05/18/14) ANESTH INJECT-SPIN CANAL (09/22/13) CERVICAL SPINE X-RAY NEC (09/22/13) CONTRAST PHLEBOGRAM-LEG (06/17/13) DETOXIFICATION SERVICES FOR SUBSTANCE ABUSE TREATMENT (10/22/16) INJECT STEROID (01/26/14) INJECT/INFUSE NEC (01/29/12) INJECT/INFUSE THROMBOLYTIC AGENT (06/17/13) INJECTION INTO JOINT (01/26/14) INTRASPIN NERVE ROOT DIV (10/20/13) LUMBOSAC SPINE X-RAY NEC (05/18/14) OTHER ENDOVASCULAR PROCEDURES ON OTHER VESSELS (06/17/13) PERIPH NERVE DESTRUCTION (10/20/13) PLICATION OF VENA CAVA (06/17/13) SPINAL CANAL INJECT NEC (09/22/13) SYMPATH NERVE INJECT NEC (09/04/11) VENA CAV ANGIOCARDIOGRAM (06/17/13) X-RAY NEC AND NOS (11/24/13) Family History: States: No Known Family Hx - Social History Hx Tobacco Use: Yes Hx Alcohol Use: No Hx Substance Use: No - Immunization History Hx Tetanus Toxoid Vaccination: No Hx Influenza Vaccination: Yes Hx Pneumococcal Vaccination: Yes Review Of Systems Constitutional: Negative for: Fever, Weakness, Malaise Cardiovascular: Negative for: Chest Pain, Palpitations Respiratory: Negative for: Shortness of Breath Gastrointestinal: Negative for: Abdominal Pain Musculoskeletal: Positive for: Neck Pain, Back Pain, Other (hip pain) Neurological: Positive for: Headache. Negative for: Weakness, Numbness, Dizziness Physical Exam - Physical Exam Appears: Non-toxic, No Acute Distress Skin: Normal Color, Warm, Dry Head: Atraumatic, Normacephalic Eye(s): bilateral: Normal Inspection, PERRL, EOMI Nose: Normal Oral Mucosa: Moist Neck: Normal ROM, No Midline Cervical Tenderness, Paracervical Tenderness, Supple Chest: Symmetrical, No Deformity Cardiovascular: Rhythm Regular, No Murmur Respiratory: Normal Breath Sounds, No Wheezing Gastrointestinal/Abdominal: Soft, No Tenderness, No Distention, No Guarding Back: Normal Inspection Extremity: Normal ROM, No Pedal Edema, No Deformity Neurological/Psych: Oriented x3, Normal Speech, Normal Cranial Nerves, No Cerebellar Signs, Normal Motor, Normal Sensation Gait: Steady ED Course And Treatment O2 Sat by Pulse Oximetry: 97 (RA) Pulse Ox Interpretation: Normal Medical Decision Making Medical Decision Making: Patient has headache with normal neuro exam. He reports history of chronic pain and conditions including chronic hip pain, herniated disks, dental problems. Patient does not want narcotics. Will treat with Toradol and Reglan. He did not want fluids. Patient remained afebrile alert and oriented in no distress. Plan is to discharge home with Rx and advise follow up with pain management Dr Mcbride. Disposition Counseled Patient/Family Regarding: Diagnosis, Need For Followup, Rx Given - Disposition Referrals: Reed Adams,MD Ez [Non-Staff] - Disposition: HOME/ ROUTINE Disposition Time: 12:15 Condition: STABLE Additional Instructions: Please follow up with you pain management doctor Take medications as needed for pain Prescriptions: Gabapentin 300 mg PO DAILY #20 capsule Methylprednisolone [Medrol Dose Pack (21 tabs)] 4 mg PO DAILY #21 mg Instructions: Chronic Pain Forms: [facility] (Kyrgyz) - POA Present On Arrival: None - Clinical Impression Clinical Impression: Headache, Cervical radiculopathy, Chronic hip pain - PA / WIRE BENDER / Resident Statement MD/DO has reviewed & agrees with the documentation as recorded. - Scribe Statement The provider has reviewed the documentation as recorded by the Scribe (Keya Murphy) All medical record entries made by the Scribe were at my direction and personally dictated by me. I have reviewed the chart and agree that the record accurately reflects my personal performance of the history, physical exam, medical decision making, and the department course for this patient. I have also personally directed, reviewed, and agree with the discharge instructions and disposition.
--- NOTE | 2017-09-18 11:42 | C.PDOC ---
History Of Present Illness 52 year old male presents to the ED requesting for pain killers until his doctor comes back from vacation. Patient rates his pain as 10/10 and states he has trouble sleeping or turning because of the pain. Patient states PMD: Dr. Garret Marcial Time Seen by Provider: 09/18/17 11:26 Chief Complaint (Nursing): Medical Clearance Past Medical History Vital Signs: Last Vital Signs Temp 97.8 F 09/18/17 11:21 Pulse 70 09/18/17 11:21 Resp 18 09/18/17 11:21 BP 106/68 09/18/17 11:21 Pulse Ox 97 09/18/17 11:21 - Medical History PMH: Anxiety, Arthritis, Back Problems, Bipolar Disorder, Depression, Deep Vein Thrombosis (LEFT LEG 2013), HTN, Hypercholesterolemia, Hypothyroidism, Kidney Stones, Pulmonary Embolism (2013), Chronic Kidney Disease, Schizophrenia, Chronic Pain (Neck, Back, and Right Hip) Denies: Diabetes, Hepatitis, HIV, Hyperthyroidism, Seizures, Sexually Transmitted Disease [facility] ANESTH INJEC PERIPH NERV (01/12/14) ANESTH INJECT SYMP NERVE (05/18/14) ANESTH INJECT-SPIN CANAL (09/22/13) CERVICAL SPINE X-RAY NEC (09/22/13) CONTRAST PHLEBOGRAM-LEG (06/17/13) DETOXIFICATION SERVICES FOR SUBSTANCE ABUSE TREATMENT (10/22/16) INJECT STEROID (01/26/14) INJECT/INFUSE NEC (01/29/12) INJECT/INFUSE THROMBOLYTIC AGENT (06/17/13) INJECTION INTO JOINT (01/26/14) INTRASPIN NERVE ROOT DIV (10/20/13) LUMBOSAC SPINE X-RAY NEC (05/18/14) OTHER ENDOVASCULAR PROCEDURES ON OTHER VESSELS (06/17/13) PERIPH NERVE DESTRUCTION (10/20/13) PLICATION OF VENA CAVA (06/17/13) SPINAL CANAL INJECT NEC (09/22/13) SYMPATH NERVE INJECT NEC (09/04/11) VENA CAV ANGIOCARDIOGRAM (06/17/13) X-RAY NEC AND NOS (11/24/13) Family History: States: Unknown Family Hx - Social History Hx Tobacco Use: Yes Hx Alcohol Use: No Hx Substance Use: No - Immunization History Hx Tetanus Toxoid Vaccination: No Hx Influenza Vaccination: Yes Hx Pneumococcal Vaccination: Yes ED Course And Treatment O2 Sat by Pulse Oximetry: 97 Disposition - Disposition
[2017-09-18 12:26] VITALS: BP 97/61; PULSE 62; TEMP 98.7
[2017-09-18 13:57] VITALS: O2SAT 97
== END 2017-09-18 12:20 | disposition home or self-care (01) ==
LOC: C.ER 11:13
DX: R51 Headache (principal); M54.12 Radiculopathy, cervical region; G89.29 Other chronic pain; M25.559 Pain in unspecified hip
CPT/HCPCS: 96372; 99283; J1885

== ENCOUNTER 2017-10-24 15:12 | Emergency (ER) | payer MEDICARE ==
[2017-10-24 15:57] VITALS: BMI 31.8
--- NOTE | 2017-10-24 17:54 | C.PDOC ---
"History Of Present Illness 52 y/o male, with PMHx of DVT, and PE 8 years ago, presents to ED for evaluation of left sided chest pain for the last 5 days. Notes that pain is sharp, worse with deep breath and intermittently feels as if he can't catch his breath. Pt states that he underwent a dental procedure 2 weeks ago that required him to stop taking Xarelto and then again had to stop taking it last week for facet joint block procedure in the neck and back. He has not been taking Xarelto for 2 weeks. Denies any other complaints. Time Seen by Provider: 10/24/17 17:26 Chief Complaint (Nursing): Shortness Of Breath History Per: Patient History/Exam Limitations: no limitations Past Medical History Reviewed: Historical Data, Nursing Documentation, Vital Signs Vital Signs: Last Vital Signs Temp Pulse 87 10/24/17 16:52 Resp 21 10/24/17 16:00 BP 113/78 10/24/17 16:52 Pulse Ox 100 10/24/17 20:22 - Medical History PMH: Anxiety, Arthritis, Back Problems, Bipolar Disorder, Depression, Deep Vein Thrombosis (LEFT LEG 2013), HTN, Hypercholesterolemia, Hypothyroidism, Kidney Stones, Pulmonary Embolism (2013), Chronic Kidney Disease, Schizophrenia, Chronic Pain (Neck, Back, and Right Hip) Denies: Diabetes, Hepatitis, HIV, Hyperthyroidism, Seizures, Sexually Transmitted Disease Surgical History: Cholecystectomy (2013) - [facility] Procedures ANESTH INJEC PERIPH NERV (01/12/14) ANESTH INJECT SYMP NERVE (05/18/14) ANESTH INJECT-SPIN CANAL (09/22/13) CERVICAL SPINE X-RAY NEC (09/22/13) CONTRAST PHLEBOGRAM-LEG (06/17/13) DETOXIFICATION SERVICES FOR SUBSTANCE ABUSE TREATMENT (10/22/16) INJECT STEROID (01/26/14) INJECT/INFUSE NEC (01/29/12) INJECT/INFUSE THROMBOLYTIC AGENT (06/17/13) INJECTION INTO JOINT (01/26/14) INTRASPIN NERVE ROOT DIV (10/20/13) LUMBOSAC SPINE X-RAY NEC (05/18/14) OTHER ENDOVASCULAR PROCEDURES ON OTHER VESSELS (06/17/13) PERIPH NERVE DESTRUCTION (10/20/13) PLICATION OF VENA CAVA (06/17/13) SPINAL CANAL INJECT NEC (09/22/13) SYMPATH NERVE INJECT NEC (09/04/11) VENA CAV ANGIOCARDIOGRAM (06/17/13) X-RAY NEC AND NOS (11/24/13) Family History: States: Unknown Family Hx - Social History Hx Tobacco Use: Yes Hx Alcohol Use: No Hx Substance Use: Yes - Immunization History Hx Tetanus Toxoid Vaccination: No Hx Influenza Vaccination: Yes Hx Pneumococcal Vaccination: Yes Review Of Systems Except As Marked, All Systems Reviewed And Found Negative. Constitutional: Negative for: Fever, Chills Cardiovascular: Positive for: Chest Pain. Negative for: Palpitations, Light Headedness Respiratory: Positive for: Shortness of Breath. Negative for: Cough Neurological: Negative for: Headache, Dizziness Physical Exam - Physical Exam Appears: Non-toxic, No Acute Distress Skin: Normal Color, Warm, Dry Head: Atraumatic, Normacephalic Eye(s): bilateral: Normal Inspection Oral Mucosa: Moist Neck: Supple Cardiovascular: Rhythm Regular, No Murmur Respiratory: Normal Breath Sounds, No Accessory Muscle Use, No Rales, No Rhonchi , No Wheezing Gastrointestinal/Abdominal: Soft, No Tenderness Extremity: Normal ROM, No Pedal Edema Neurological/Psych: Oriented x3, Normal Speech ED Course And Treatment - Laboratory Results Result Diagrams: 10/24/17 18:20 10/24/17 18:20 Lab Interpretation: Normal ECG: Interpreted By Az ECG Rhythm: Sinus Rhythm ECG Interpretation: Normal O2 Sat by Pulse Oximetry: 100 Pulse Ox Interpretation: Normal - Radiology CXR: Interpreted by Az CXR Interpretation: Yes: No Acute Disease - CT Scan/US CT Chest Other Rad Studies (CT/US): Read By Radiologist, Radiology Report Reviewed CT/US Interpretation: Name: OLIVER WEVAER Age: 52Years M Date: 10/24/2017. Requesting Physician: Kaur Burgess : 1965. [facility] Procedure Ordered As Accession Number of Images. CTA CHEST CT ANGIO CHEST PE PROTOCOL [id number]. Provided Clinical History: chest pain. EXAM: CT Angiography Chest With Intravenous Contrast. EXAM DATE/TIME: 10/24/2017 5:46 PM. CLINICAL HISTORY: 52 years old, male; Pain; Chest pain; Type not specified. TECHNIQUE: Axial computed tomographic angiography images of the chest with intravenous contrast using CT. angiography protocol. All CT scans at this facility use at least one of these dose optimization techniques: automated. exposure control; mA and/or kV adjustment per patient size ( includes targeted exams where dose is. matched to clinical indication); or iterative reconstruction. MIP reconstructed images were created and reviewed. CONTRAST: 100 ml of [id number] administered intravenously. COMPARISON: CT - ANGIO CHEST PE PROTOCOL 2015-02-25 17:43. FINDINGS: Pulmonary arteries: Normal. No pulmonary emboli. Aorta: Normal. No aortic aneurysm. No aortic dissection. Lungs: Scattered atelectasis or fibrotic change in both lungs. Pleural space: Normal. No pneumothorax. No pleural effusion. Heart: Vascular calcifications including coronary artery calcifications. No cardiomegaly. No. pericardial effusion. Bones/joints: Mild hypertrophic change in the spine. Soft tissues: Unremarkable. Lymph nodes: Unremarkable. No enlarged lymph nodes. Liver: Fatty liver. Gallbladder and bile ducts: Cholecystectomy. Kidneys and ureters: There may be a stone in the upper pole right kidney. OWENOLIVER Grider | Preliminary Radiology Report. CONFIDENTIALITY STATEMENT. This report is intended only for the use of the referring physician, and only in accordance with law, If you received this in error, call [phone]. Page 2 of 2. IMPRESSION: No acute pulmonary embolism. Thank you for allowing us to participate in the care of your patient. Dictated and Authenticated by: Dougie Lee MD. 10/24/2017 8: 19 PM Eastern Time ([place] & [place]) Reevaluation Time: 20:24 Reassessment Condition: Improved (Patient remains comfortable. No difficulty breathing. No chest wall pain.) Medical Decision Making Medical Decision Making: Plan: Blood work EKG, CXR Angio chest CT Disposition Counseled Patient/Family Regarding: Studies Performed, Diagnosis, Need For Followup - Disposition Referrals: Anirudh Woo MD [Staff Provider] - Disposition: HOME/ ROUTINE Disposition Time: 20:25 Condition: STABLE Instructions: Chest Pain That Is Not Caused by the Heart (DC) Forms: ITN (Kazakh) - Clinical Impression Clinical Impression: Chest pain - Scribe Statement The provider has reviewed the documentation as recorded by the Scribe KP All medical record entries made by the Scribe were at my direction and personally dictated by me. I have reviewed the chart and agree that the record accurately reflects my personal performance of the history, physical exam, medical decision making, and the department course for this patient. I have also personally directed, reviewed, and agree with the discharge instructions and disposition."
[2017-10-24] MEDS ORDERED: Iodixanol 320 MG/ML 100 ML BOTTLE IV ONE (17:55)
[2017-10-24 18:25] LABS: BASO % 0.4 % (0.0-2.0); EOS # 0.1 K/uL (0.0-0.7); EOS % 1.4 % (0.0-4.0); HEMOGLOBIN 12.7 g/dL (12.0-18.0); LYMPH # 1.5 K/uL (1.0-4.3); LYMPH % 27.7 % (20.0-40.0); MEAN CELL VOLUME 96.5 fL (80.0-94.0); MEAN CORPUSCULAR HEMOGLOBIN 31.9 pg (27.0-31.0); MONO # 0.4 K/uL (0.0-0.8); MONO % 6.7 % (0.0-10.0); NEUT # 3.5 K/uL (1.8-7.0); NEUT % 63.8 % (50.0-75.0); NRBC % 0.1 % (0.0-2.0); RBC 3.99 Mil/uL (4.40-5.90); WHITE BLOOD COUNT 5.5 K/uL (4.8-10.8)
--- NOTE | 2017-10-24 18:36 | RAD ---
Chest x-ray single frontal view History: Chest pain. Comparison: 04/18/2016 Findings: Mild venous congestion. Left hilar prominence. Mild patchy increased markings at the left lung base. Tortuous aorta. Heart size within normal limits. Impression: Mild venous congestion. Left hilar prominence. Mild patchy increased markings at the left lung base.
[2017-10-24 18:39] LABS: ALB/GLOB RATIO 1.7 (1.0-2.1); ALBUMIN 4.8 g/dL (3.5-5.0); ALT/SGPT 41 U/L (21-72); AST/SGOT 23 U/L (17-59); BLOOD UREA NITROGEN 15 mg/dL (9-20); GFR AFRICAN-AMERICAN > 60; GFR NON-AFRICAN AMERICAN > 60
[2017-10-24] MEDS ORDERED: Oxycodone/Acetaminophen 5/325 mg Tab ONE (19:24)
[2017-10-24] MEDS ORDERED: Oxycodone/Acetaminophen 5/325 mg Tab PO STA ×2 (19:24→19:26)
[2017-10-24 20:40] VITALS: BP 119/70; PULSE 81; RESP 20; TEMP 98.1; O2SAT 98
--- NOTE | 2017-10-25 11:56 | CT ---
Date of service: 10/24/2017 PROCEDURE: CT Chest with contrast (Pulmonary Angiogram) HISTORY: chest pain COMPARISON: None available. TECHNIQUE: Axial computed tomography images were obtained of the chest in the pulmonary arterial phase of enhancement. Coronal and sagittal reformatted images were created and reviewed. Intravenous contrast dose: 100 cc Visipaque 320 Radiation dose: Total exam DLP = 491.48 mGy-cm. This CT exam was performed using one or more of the following dose reduction techniques: Automated exposure control, adjustment of the mA and/or kV according to patient size, and/or use of iterative reconstruction technique. FINDINGS: PULMONARY ARTERIES: The visualized pulmonary trunk, right and left main, lobar, segmental and proximal subsegmental branches of the pulmonary arteries are well opacified with no definitive filling defects seen to suggest acute central pulmonary embolus. Pulmonary trunk measures approximately 2.74 cm. The AORTA: No acute findings. No thoracic aortic aneurysm. The ascending thoracic aorta measures approximately 3.5 cm and descending thoracic aorta measures approximately 2.5 cm. LUNGS: Mild passive -dependent type atelectasis both posterior sulci. In addition, there are vague ground-glass opacities seen in the superior margins of both upper lobes possibly representing air trapping the pneumonitis not excluded. Minor scarring changes seen in the left lung base/ lingular region. PLEURAL SPACES: Unremarkable. No effusion or pneumothorax. HEART: Unremarkable. No cardiomegaly. No significant pericardial effusion. LYMPH NODES: There are a few small nonspecific mediastinal lymph nodes. Central airways midline and patent. No large central endoluminal lesions. There is a small hiatal hernia with slight wall thickening of the distal esophagus that could due to protrusion gastric mucosa. Esophagitis not excluded. BONES, CHEST WALL: Mild multilevel degenerative spondylosis of the thoracic spine. There are no acute compression fractures no retropulsed fragments. . Punctate calcifications seen in the upper pole of right kidney OTHER FINDINGS: Cholecystectomy. IMPRESSION: No evidence of acute central pulmonary embolus. Changes atelectatic/scarring changes left lung base -lingular region. There also mild ground-glass opacity seen in the superior margins both upper lobes possibly representing air trapping however pneumonitis not excluded.
== END 2017-10-24 20:40 | disposition home or self-care (01) ==
LOC: C.ER 15:12
DX: R07.9 Chest pain, unspecified (principal); E78.00 Pure hypercholesterolemia, unspecified; E03.9 Hypothyroidism, unspecified; I12.9 Hypertensive chronic kidney disease with stage 1 through stage 4 chronic kidney disease, or unspecified chronic kidney disease; N18.9 Chronic kidney disease, unspecified; F20.9 Schizophrenia, unspecified; Z72.0 Tobacco use
CPT/HCPCS: 71045; 71275; 80053; 84484; 85025; 85378; 99285; Q9967

== ENCOUNTER 2017-11-06 10:58 | Emergency (ER) | payer MEDICARE ==
[2017-11-06 11:06] VITALS: BMI 31.6
[2017-11-06 11:10] VITALS: TEMP 97.6
[2017-11-06] MEDS ORDERED: Sodium Chloride 0.9% 1,000 ML IV STA (11:26)
[2017-11-06] MEDS ORDERED: Sodium Chloride 0.9% 1,000 ML ONE (11:46)
--- NOTE | 2017-11-06 12:16 | C.PDOC ---
History Of Present Illness 52 year old male presents to the ED complaining of constant headaches for more than 3 months. He states he was seen by PMD and a neurologist, had a CAT scan and MRI done, and has taken different medications, but pain persists. He requests medication for the pain because he wants to attend a family barbeque this afternoon. He denies any fever, chills, nausea, vomiting, diarrhea, dizziness, photophobia, SOB or any other physical symptoms. Time Seen by Provider: 11/06/17 11:17 Chief Complaint (Nursing): Headache History Per: Patient History/Exam Limitations: no limitations Onset/Duration Of Symptoms: Other (3 months) Current Symptoms Are (Timing): Still Present Associated Symptoms: denies: Photophobia, Blurred Vision, Nausea, Vomiting Past Medical History Reviewed: Historical Data, Nursing Documentation, Vital Signs Vital Signs: Last Vital Signs Temp 97.6 F 11/06/17 11:06 Pulse 69 11/06/17 12:40 Resp 18 11/06/17 12:40 BP 102/72 11/06/17 12:40 Pulse Ox 96 11/06/17 17:51 - Medical History PMH: Anxiety, Arthritis, Back Problems, Bipolar Disorder, Depression, Deep Vein Thrombosis (LEFT LEG 2013), HTN, Hypercholesterolemia, Hypothyroidism, Kidney Stones, Pulmonary Embolism (2013), Chronic Kidney Disease, Schizophrenia, Chronic Pain (Neck, Back, and Right Hip) Denies: Diabetes, Hepatitis, HIV, Hyperthyroidism, Seizures, Sexually Transmitted Disease Surgical History: Cholecystectomy (2013) - [facility] Procedures ANESTH INJEC PERIPH NERV (01/12/14) ANESTH INJECT SYMP NERVE (05/18/14) ANESTH INJECT-SPIN CANAL (09/22/13) CERVICAL SPINE X-RAY NEC (09/22/13) CONTRAST PHLEBOGRAM-LEG (06/17/13) DETOXIFICATION SERVICES FOR SUBSTANCE ABUSE TREATMENT (10/22/16) INJECT STEROID (01/26/14) INJECT/INFUSE NEC (01/29/12) INJECT/INFUSE THROMBOLYTIC AGENT (06/17/13) INJECTION INTO JOINT (01/26/14) INTRASPIN NERVE ROOT DIV (10/20/13) LUMBOSAC SPINE X-RAY NEC (05/18/14) OTHER ENDOVASCULAR PROCEDURES ON OTHER VESSELS (06/17/13) PERIPH NERVE DESTRUCTION (10/20/13) PLICATION OF VENA CAVA (06/17/13) SPINAL CANAL INJECT NEC (09/22/13) SYMPATH NERVE INJECT NEC (09/04/11) VENA CAV ANGIOCARDIOGRAM (06/17/13) X-RAY NEC AND NOS (11/24/13) Family History: States: No Known Family Hx - Social History Hx Tobacco Use: Yes Hx Alcohol Use: No Hx Substance Use: Yes - Immunization History Hx Tetanus Toxoid Vaccination: No Hx Influenza Vaccination: Yes Hx Pneumococcal Vaccination: Yes Review Of Systems Except As Marked, All Systems Reviewed And Found Negative. Constitutional: Negative for: Fever Eyes: Negative for: Vision Change Respiratory: Negative for: Shortness of Breath Gastrointestinal: Negative for: Nausea, Vomiting, Diarrhea Neurological: Positive for: Headache. Negative for: Dizziness Physical Exam - Physical Exam Appears: Non-toxic, No Acute Distress, Other (Active, Talking loudly ) Skin: Normal Color, Warm, Dry Head: Atraumatic, Normacephalic Eye(s): bilateral: Normal Inspection, PERRL, EOMI Nose: Normal Oral Mucosa: Moist Neck: Normal ROM, Supple Chest: Symmetrical Cardiovascular: Rhythm Regular Respiratory: Normal Breath Sounds, No Rales, No Rhonchi, No Wheezing Extremity: Normal ROM Neurological/Psych: Oriented x3, Normal Speech, Normal Cognition, Normal Cranial Nerves, Normal Motor, Normal Sensation Gait: Steady ED Course And Treatment O2 Sat by Pulse Oximetry: 96 (RA) Pulse Ox Interpretation: Normal Progress Note: Patient demanded IV medication. Patient treated with Toradol, Reglan and IV fluids. On reassessment, patient is in no distress. He reports minimal relief and wants to go home. Patient given Rx for Fioricet. Patient instructed to follow up with PMD and neurologist within 1-2 days. Return to ED if feel worse. Disposition - Disposition Referrals: Aniket Combs MD [Staff Provider] - Disposition: HOME/ ROUTINE Disposition Time: 12:23 Condition: STABLE Additional Instructions: Follow up with PMD and neurologist within 1-2 days. Return to ED if feel worse. Prescriptions: Acetaminophen/Butalbital/Caf [Fioricet] 1 tab PO TID #15 tab Instructions: Headache, Adult Forms: [facility] (Mongolian) - Clinical Impression Clinical Impression: Headache
[2017-11-06 12:48] VITALS: BP 102/72; PULSE 69; RESP 18
[2017-11-06 17:47] VITALS: O2SAT 96
== END 2017-11-06 12:41 | disposition home or self-care (01) ==
LOC: C.ER 10:58
DX: R51 Headache (principal)
CPT/HCPCS: 96361; 96374; 96375; 99284; J1885; J2765; J7030

== ENCOUNTER 2017-11-09 10:45 | Emergency (ER) | payer MEDICARE ==
[2017-11-09 10:46] VITALS: BMI 31.6
[2017-11-09] MEDS ORDERED: Sodium Chloride 0.9% 1,000 ML IV STA (11:03)
[2017-11-09] MEDS ORDERED: Magnesium Sulfate 1 gm in D5W 1 GM/100 ML BAG IVPB STA (11:03)
--- NOTE | 2017-11-09 11:03 | C.PDOC ---
History Of Present Illness 52 year old male patient presents to the ER with c/o worsening and persistent chronic headache. Patient was seen on 11/06 and other multiple visits for the same complaint. Patient notes he has a cervical facet joint injection and epidural injection 6 weeks ago for the same complaint. Patients states the headache is intermittent and fioricet does not provide relief. Associated symptoms includes nausea and new onset: paresthesia on left fingertips. Patient denies weakness, dizziness, fever, vomiting and chills. CO PERSIST AND WORSENING CHRONIC ARROYO. SEEN 11/06 FOR SAME, MULT PRIOR ER VISITS FOR SAME. S/P CERVICAL FACET JOINT/EPIDURAL INJECTIONS 6 WEEKS AGO FOR SAME. ARROYO INTERMIT. NO RELIEF W FIORCET. +NAUSEA. +NEW ONSET PARESTHESIA L FINGERTIPS. NO WEAKNESS EXAM MILD DIST NONTOXIC HEENT NO PHOTOPHOBIA, ATRAUM NECK AROM WO DIFF NEURO NO GROSS FOCAL DEF REMAINDER NEG History Per: Patient History/Exam Limitations: no limitations Onset/Duration Of Symptoms: Days, Intermittent Episodes Current Symptoms Are (Timing): Still Present Past Medical History Reviewed: Historical Data, Nursing Documentation, Vital Signs Vital Signs: Last Vital Signs Temp 98 F 11/09/17 12:44 Pulse 76 11/09/17 12:44 Resp 18 11/09/17 12:44 BP 126/73 11/09/17 12:44 Pulse Ox 98 11/09/17 12:44 - Medical History PMH: Anxiety, Arthritis, Back Problems, Bipolar Disorder, Depression, Deep Vein Thrombosis (LEFT LEG 2013), HTN, Hypercholesterolemia, Hypothyroidism, Kidney Stones, Pulmonary Embolism (2013), Chronic Kidney Disease, Schizophrenia, Chronic Pain (Neck, Back, and Right Hip) Surgical History: Cholecystectomy (2013) - [facility] Procedures ANESTH INJEC PERIPH NERV (01/12/14) ANESTH INJECT SYMP NERVE (05/18/14) ANESTH INJECT-SPIN CANAL (09/22/13) CERVICAL SPINE X-RAY NEC (09/22/13) CONTRAST PHLEBOGRAM-LEG (06/17/13) DETOXIFICATION SERVICES FOR SUBSTANCE ABUSE TREATMENT (10/22/16) INJECT STEROID (01/26/14) INJECT/INFUSE NEC (01/29/12) INJECT/INFUSE THROMBOLYTIC AGENT (06/17/13) INJECTION INTO JOINT (01/26/14) INTRASPIN NERVE ROOT DIV (10/20/13) LUMBOSAC SPINE X-RAY NEC (05/18/14) OTHER ENDOVASCULAR PROCEDURES ON OTHER VESSELS (06/17/13) PERIPH NERVE DESTRUCTION (10/20/13) PLICATION OF VENA CAVA (06/17/13) SPINAL CANAL INJECT NEC (09/22/13) SYMPATH NERVE INJECT NEC (09/04/11) VENA CAV ANGIOCARDIOGRAM (06/17/13) X-RAY NEC AND NOS (11/24/13) Family History: States: Unknown Family Hx - Social History Hx Tobacco Use: Yes Hx Alcohol Use: No Hx Substance Use: Yes - Immunization History Hx Tetanus Toxoid Vaccination: No Hx Influenza Vaccination: Yes Hx Pneumococcal Vaccination: Yes Review Of Systems Except As Marked, All Systems Reviewed And Found Negative. Constitutional: Positive for: Other (headache). Negative for: Fever, Chills Gastrointestinal: Positive for: Nausea. Negative for: Vomiting Musculoskeletal: Positive for: Hand Pain (parethesia on left fingertips) Neurological: Negative for: Weakness, Dizziness Physical Exam - Physical Exam Appears: Well, Non-toxic, In Acute Distress (mild) Skin: Normal Color, Warm, Dry Head: Atraumatic, Normacephalic Eye(s): bilateral: Normal Inspection, PERRL, EOMI, Other (no photophobia) Neck: Normal ROM, Supple Chest: Symmetrical, No Deformity Cardiovascular: Rhythm Regular Respiratory: Normal Breath Sounds, No Rales, No Rhonchi, No Wheezing Gastrointestinal/Abdominal: Soft, No Tenderness Back: No CVA Tenderness Extremity: Normal ROM (x4) Neurological/Psych: Oriented x3, Normal Speech, No Other (gross focal deficit) Gait: Steady ED Course And Treatment Progress Note: Impression: chronic headache with paresthesia on left fingertips. Plan: -- Glucose, POC routine. -- Decadron Injection. -- Magnesium sulfate. -- Reglan. -- IV fluids. -- Toradol. -- Tylenol. -- Depacon injection. Reassess: Patient is resting comfortably. tolerating PO. No neurologic deficit, photophobia, rash, fever, or nuchal rigidity. Patient was instructed to follow up with PCP in 1-2 days. Progress - Re-Evaluation Re-evaluation Note: 11/09/17 12:53 FEELS BETTER, REQUESTING DC - Data Reviewed Data Reviewed: Old records Disposition Counseled Patient/Family Regarding: Diagnosis - Disposition Referrals: YOUR,PMD [Other] Disposition: HOME/ ROUTINE Disposition Time: 12:54 Condition: IMPROVED Instructions: Chronic Pain (DC) - Clinical Impression Clinical Impression: Chronic neck pain, Headache - Scribe Statement The provider has reviewed the documentation as recorded by the Anastacia Hutton Do Provider Attestation: All medical record entries made by the Justinibbianca were at my direction and personally dictated by me. I have reviewed the chart and agree that the record accurately reflects my personal performance of the history, physical exam, medical decision making, and the department course for this patient. I have also personally directed, reviewed, and agree with the discharge instructions and disposition.
[2017-11-09 12:44] VITALS: BP 126/73; PULSE 76; RESP 18; TEMP 98; O2SAT 98
== END 2017-11-09 13:03 | disposition home or self-care (01) ==
LOC: C.ER 10:45
DX: R51 Headache (principal); G89.29 Other chronic pain; M54.2 Cervicalgia
CPT/HCPCS: 82948; 96374; 96375; 99285; J1100; J1885; J2765; J3475; J7030

== ENCOUNTER 2017-11-26 07:16 | Emergency (ER) | payer MEDICARE ==
[2017-11-26 07:16] VITALS: BMI 31.6
[2017-11-26 07:30] VITALS: RESP 18
[2017-11-26] MEDS ORDERED: Sodium Chloride 0.9% 1,000 ML IV ONE (07:53)
--- NOTE | 2017-11-26 07:55 | C.PDOC ---
History Of Present Illness 52 year old male patient presents to the ER complaining of persistent headache for 3 months. Patients states the headache is intermittent starts at posterior of head and neck and radiates to entire headache and feels pressure around his head. Additionally the patient reports paresthesia of left fingertips for the past few weeks. Yesterday the patient reports left eye haziness when trying to read newspaper. Patient reports he has seen PMD, pain management and neurologist and had CT scans and MRI done. Patient was found to have 3 her[address] in neck. Dr Mcbride, pain management, has performed cervical facet joint injection and epidural injection, most recent 10 days ago. Patient still complains of pain and has taken different medications including: naproxen, ibuprofen, imitrex, tramadol, and fioricet but the pain persists. Patient admits to having chronic right hip pain, had hip replacement with subsequent infection to joint in 2014. Additionally patien has had dental problems few months ago, was on antibiotics and had 5 teeth removed. Patient reports he has been in a lot of pain, and relapsed after 13 years and admits to using heroin intravenously last week. Denies any fever, chills, nausea, vomiting, diarrhea, dizziness, photophobia, SOB or weakness. Pain management: Dr Phylicia Mcbride PMD: Dr Anirudh Woo Time Seen by Provider: 11/26/17 07:32 Chief Complaint (Nursing): Headache History Per: Patient History/Exam Limitations: no limitations Onset/Duration Of Symptoms: Days, Intermittent Episodes Current Symptoms Are (Timing): Still Present Quality: Pressure Associated Symptoms: denies: Nausea, Vomiting Recent travel outside of the [place]: No Additional History Per: Patient Past Medical History Reviewed: Historical Data, Nursing Documentation, Vital Signs Vital Signs: Last Vital Signs Temp 98 F 11/26/17 10:16 Pulse 86 11/26/17 10:16 Resp 18 11/26/17 10:16 BP 126/73 11/26/17 10:16 Pulse Ox 98 11/26/17 10:16 - Medical History PMH: Anxiety, Arthritis, Back Problems, Bipolar Disorder, Depression, Deep Vein Thrombosis (LEFT LEG 2013), Fractures, Gall Bladder Disease, HTN, Hypercholesterolemia, Hypothyroidism, Kidney Stones, Pulmonary Embolism (2013), Chronic Kidney Disease, Schizophrenia, Chronic Pain (Neck, Back, and Right Hip) Surgical History: Cholecystectomy (2013) - [facility] Procedures ANESTH INJEC PERIPH NERV (01/12/14) ANESTH INJECT SYMP NERVE (05/18/14) ANESTH INJECT-SPIN CANAL (09/22/13) CERVICAL SPINE X-RAY NEC (09/22/13) CONTRAST PHLEBOGRAM-LEG (06/17/13) DETOXIFICATION SERVICES FOR SUBSTANCE ABUSE TREATMENT (10/22/16) INJECT STEROID (01/26/14) INJECT/INFUSE NEC (01/29/12) INJECT/INFUSE THROMBOLYTIC AGENT (06/17/13) INJECTION INTO JOINT (01/26/14) INTRASPIN NERVE ROOT DIV (10/20/13) LUMBOSAC SPINE X-RAY NEC (05/18/14) OTHER ENDOVASCULAR PROCEDURES ON OTHER VESSELS (06/17/13) PERIPH NERVE DESTRUCTION (10/20/13) PLICATION OF VENA CAVA (06/17/13) SPINAL CANAL INJECT NEC (09/22/13) SYMPATH NERVE INJECT NEC (09/04/11) VENA CAV ANGIOCARDIOGRAM (06/17/13) X-RAY NEC AND NOS (11/24/13) Family History: States: Unknown Family Hx - Social History Hx Tobacco Use: Yes Hx Alcohol Use: No Hx Substance Use: Yes - Immunization History Hx Tetanus Toxoid Vaccination: Yes Hx Influenza Vaccination: Yes Hx Pneumococcal Vaccination: Yes Review Of Systems Except As Marked, All Systems Reviewed And Found Negative. Constitutional: Negative for: Fever, Chills Eyes: Positive for: Vision Change (left eye haziness) ENT: Positive for: Mouth Pain (dental pain) Cardiovascular: Negative for: Chest Pain Respiratory: Negative for: Shortness of Breath Gastrointestinal: Negative for: Nausea, Vomiting, Abdominal Pain, Diarrhea Musculoskeletal: Positive for: Other (right hip pain) Neurological: Positive for: Numbness (parasthesia to left fingertips), Headache. Negative for: Dizziness Physical Exam - Physical Exam Appears: Non-toxic, No Acute Distress Skin: Warm, Dry, Other (superficial abrasion and irritation to right antecubital fossa ) Head: Atraumatic, Normacephalic Eye(s): bilateral: Normal Inspection, PERRL, EOMI, Other (horizontal nystagmus) Oral Mucosa: Moist Tongue: Normal Appearing Lips: Normal Appearing Teeth: Other (multiple extractions) Throat: Normal Neck: Normal ROM, Supple Cardiovascular: Rhythm Regular, No Murmur Respiratory: Normal Breath Sounds, No Rales, No Rhonchi, No Wheezing Gastrointestinal/Abdominal: Soft, No Tenderness Extremity: Normal ROM, No Deformity Neurological/Psych: Oriented x3, Normal Speech, No Other (no focal deficits) ED Course And Treatment - Laboratory Results Result Diagrams: 11/26/17 08:24 11/26/17 08:24 O2 Sat by Pulse Oximetry: 97 (RA) Pulse Ox Interpretation: Normal - Other Rad Hip Xray X-Ray: Viewed By Me, Read By Radiologist Interpretation: FINDINGS: BONES: The pelvic ring is intact. There is diffuse bone demineralization. There is no acute displaced fracture or bone destruction. JOINTS: Status post total right hip arthroplasty. No hardware complications. No dislocation. Moderate degenerative osteoarthrosis in the left hip joint with reduced lateral compartment joint space and subarticular cystic changes. SOFT TISSUES: Normal. OTHER FINDINGS: None. IMPRESSION: No acute displaced fracture or dislocation. Please note occult fractures cannot be excluded on plain radiographs. If there is a persistent clinical concern, an MRI of the hip may be performed for further evaluation. Status post right hip arthroplasty, no hardware complications. - CT Scan/US CT Head Other Rad Studies (CT/US): Read By Radiologist, Radiology Report Reviewed CT/US Interpretation: FINDINGS: HEMORRHAGE: No acute parenchymal, subarachnoid nor extra-axial hemorrhage. BRAIN: No evidence of large acute infarct. Question minimal chronic periventricular white matter ischemic changes. . No obvious parenchymal nor extra-axial mass or collection identified on this noncontrast study. Mild generalized volume loss. VENTRICLES: No obstructive hydrocephalus. CALVARIUM: Calvarium intact. PARANASAL SINUSES: Unremarkable as visualized. No significant inflammatory changes. MASTOID AIR CELLS: Unremarkable as visualized. No inflammatory changes. OTHER FINDINGS: None. IMPRESSION: No evidence acute intracranial hemorrhage. Suspect minor chronic periventricular white matter ischemic changes. Mild generalized volume loss. Medical Decision Making Medical Decision Making: Impression: Peristent headache, chronic hip pain Prior records reviewed: Patient was seen on 11/09/17 and 11/06/17, plus other multiple visits for the same complaint or chronic pain. Plan: * CT Head * Blood work * Urinalysis * Hip Xray * Reglan, Decadron, IV fluids Progress: All labs reviewed and unremarkable. Hip Xray shows no acute fracture, Status post right hip arthroplasty, no hardware complications. CT head shows no evidence acute intracranial hemorrhage. Suspect minor chronic periventricular white matter ischemic changes. Mild generalized volume loss. [address] Woo and discussed case including lab and CT findings. He agrees if patient stable he can be discharged and follow up outpatient On re-evaluation, the patient was resting comfortably in no distress. He reports feeling mild improvement of headache. Discussed results with patient and provide copy of lab and imaging reports. All questions answered and there is agreement with the plan to discharge home with Rx and instructions. Patient expresses understanding. Patient is stable for discharge. Advised to return if symptoms persist or worsen. Disposition Counseled Patient/Family Regarding: Diagnosis, Need For Followup, Rx Given - Disposition Referrals: Anirudh Woo MD [Staff Provider] - Disposition: HOME/ ROUTINE Disposition Time: 10:07 Condition: IMPROVED Additional Instructions: Please follow up with your primary doctor, neurologist and pain management for further evaluation and care Take medications as needed for your symptoms Return to the emergency department at any time if symptoms persist or worsen. Prescriptions: Acetaminophen/Butalbital/Caf [Fioricet] 1 tab PO TID PRN #20 tab PRN Reason: Headache Cyclobenzaprine [Cyclobenzaprine HCl] 10 mg PO TID #21 tab Instructions: Headache, Adult (DC) Forms: [employer] ([place]) - POA Present On Arrival: None - Clinical Impression Clinical Impression: Chronic hip pain, Cervical radiculopathy, Headache - PA / PASTRY ASSISTANT / Resident Statement MD/DO has reviewed & agrees with the documentation as recorded. - Scribe Statement The provider has reviewed the documentation as recorded by the Justinibbianca Vides All medical record entries made by the Anastacia were at my direction and personally dictated by me. I have reviewed the chart and agree that the record accurately reflects my personal performance of the history, physical exam, medical decision making, and the department course for this patient. I have also personally directed, reviewed, and agree with the discharge instructions and disposition.
[2017-11-26] MEDS ORDERED: Sodium Chloride 0.9% 1,000 ML ONE (08:20)
[2017-11-26 08:29] LABS: BASO % 0.7 % (0.0-2.0); EOS # 0.1 K/uL (0.0-0.7); EOS % 2.4 % (0.0-4.0); HEMOGLOBIN 12.3 g/dL (12.0-18.0); LYMPH # 1.6 K/uL (1.0-4.3); LYMPH % 27.6 % (20.0-40.0); MEAN CORPUSCULAR HEMOGLOBIN 31.6 pg (27.0-31.0); MEAN CORPUSCULAR HGB CONC 33.8 g/dL (33.0-37.0); MEAN PLATELET VOLUME 8.4 fL (7.2-11.7); MONO # 0.4 K/uL (0.0-0.8); MONO % 7.5 % (0.0-10.0); NEUT # 3.6 K/uL (1.8-7.0); NEUT % 61.8 % (50.0-75.0); NRBC % 0.1 % (0.0-2.0); RBC 3.9 Mil/uL (4.40-5.90); RED CELL DISTRIBUTION WIDTH 13.9 % (11.5-14.5); WHITE BLOOD COUNT 5.8 K/uL (4.8-10.8)
[2017-11-26 08:32] LABS: MEAN CELL VOLUME 93.7 fL (80.0-94.0)
[2017-11-26 08:43] LABS: ALB/GLOB RATIO 1.7 (1.0-2.1); ALBUMIN 4.3 g/dL (3.5-5.0); ALT/SGPT 42 U/L (21-72); AST/SGOT 23 U/L (17-59); BLOOD UREA NITROGEN 17 mg/dL (9-20); GFR AFRICAN-AMERICAN > 60; GFR NON-AFRICAN AMERICAN > 60
--- NOTE | 2017-11-26 09:20 | RAD ---
PROCEDURE: Right Hip Radiographs. HISTORY: pain R side, h.o fx COMPARISON: None. FINDINGS: BONES: The pelvic ring is intact. There is diffuse bone demineralization. There is no acute displaced fracture or bone destruction. JOINTS: Status post total right hip arthroplasty. No hardware complications. No dislocation. Moderate degenerative osteoarthrosis in the left hip joint with reduced lateral compartment joint space and subarticular cystic changes. SOFT TISSUES: Normal. OTHER FINDINGS: None. IMPRESSION: No acute displaced fracture or dislocation. Please note occult fractures cannot be excluded on plain radiographs. If there is a persistent clinical concern, an MRI of the hip may be performed for further evaluation. Status post right hip arthroplasty, no hardware complications.
[2017-11-26 09:34] LABS: SQUAMOUS EPITHIAL < 1 /hpf (0-5); URINE BILIRUBIN NEGATIVE (NEGATIVE); URINE BLOOD NEGATIVE (NEGATIVE); URINE CLARITY Clear (Clear); URINE COLOR Yellow (YELLOW); URINE GLUCOSE (UA) NORMAL (Normal); URINE LEUKOCYTE ESTERASE NEG Leu/uL (Negative); URINE PROTEIN NEGATIVE (NEGATIVE); URINE UROBILINOGEN NORMAL mg/dL (0.2-1.0)
--- NOTE | 2017-11-26 09:48 | CT ---
Date of service: 11/26/2017 PROCEDURE: CT HEAD WITHOUT CONTRAST. HISTORY: Headache, left side COMPARISON: Comparison made with CT scan brain 10/31/2015. . TECHNIQUE: Axial computed tomography images were obtained through the head/brain without intravenous contrast. Radiation dose: Total exam DLP = 993.16 mGy-cm. This CT exam was performed using one or more of the following dose reduction techniques: Automated exposure control, adjustment of the mA and/or kV according to patient size, and/or use of iterative reconstruction technique. . FINDINGS: HEMORRHAGE: No acute parenchymal, subarachnoid nor extra-axial hemorrhage. BRAIN: No evidence of large acute infarct. Question minimal chronic periventricular white matter ischemic changes. . No obvious parenchymal nor extra-axial mass or collection identified on this noncontrast study. Mild generalized volume loss. VENTRICLES: No obstructive hydrocephalus. CALVARIUM: Calvarium intact. PARANASAL SINUSES: Unremarkable as visualized. No significant inflammatory changes. MASTOID AIR CELLS: Unremarkable as visualized. No inflammatory changes. OTHER FINDINGS: None. IMPRESSION: No evidence acute intracranial hemorrhage. Suspect minor chronic periventricular white matter ischemic changes. Mild generalized volume loss.
[2017-11-26 09:53] LABS: BARBITURATES, UR NEGATIVE (NEGATIVE); BENZODIAZEPINES, UR NEGATIVE (NEGATIVE); OPIATES, UR NEGATIVE (NEGATIVE); PHENCYCLIDINE, UR NEGATIVE (NEGATIVE)
[2017-11-26 10:17] VITALS: BP 126/73; PULSE 86; TEMP 98
[2017-11-26 13:10] VITALS: O2SAT 97
== END 2017-11-26 10:17 | disposition home or self-care (01) ==
LOC: C.ER 07:16
DX: M54.12 Radiculopathy, cervical region (principal); R51 Headache; M25.551 Pain in right hip; G89.29 Other chronic pain; I12.9 Hypertensive chronic kidney disease with stage 1 through stage 4 chronic kidney disease, or unspecified chronic kidney disease; N18.9 Chronic kidney disease, unspecified; F17.210 Nicotine dependence, cigarettes, uncomplicated
CPT/HCPCS: 70450; 73502; 80053; 81001; 85025; 85651; 96361; 96374; 96375; 99285; G0480; J1100; J2765; J7030

== ENCOUNTER 2017-12-04 06:19 | Emergency (ER) | payer MEDICARE ==
[2017-12-04 06:20] VITALS: BMI 31.6
[2017-12-04 06:36] VITALS: BP 133/90; PULSE 83; RESP 14; TEMP 98.3; O2SAT 97
== END 2017-12-04 07:21 | disposition left against medical advice (07) ==
LOC: C.ER 06:19
DX: Z02.89 Encounter for other administrative examinations (principal); G43.909 Migraine, unspecified, not intractable, without status migrainosus

== ENCOUNTER 2018-01-30 20:57 | Inpatient (IN) | payer MEDICARE ==
[2018-01-30 20:57] VITALS: BMI 31.6
--- NOTE | 2018-01-30 21:25 | C.PDOC ---
History Of Present Illness 52 y/o male presents to the ED for psychiatric evaluation secondary to complaints of feeling depressed. States he has been feeling like he wants to hurt himself, but has no plan. Denies having any actual suicidal or homicidal ideation. Patient offers no physical complaints at this time. Time Seen by Provider: 01/30/18 21:24 Chief Complaint (Nursing): Psychiatric Evaluation History Per: Patient History/Exam Limitations: no limitations Onset/Duration Of Symptoms: Days Current Symptoms Are (Timing): Still Present Suicide/Self Injury Attempted (Context): None Modifying Factor(s): None Severity: None Pain Scale Rating Of: 0 Associated Symptoms: Depression. denies: Suicidal Thoughts, Suicidal Plan Involuntary Hold By: None Recent travel outside of the [place]: No Additional History Per: Patient Past Medical History Reviewed: Historical Data, Nursing Documentation, Vital Signs Vital Signs: Last Vital Signs Temp 99.4 F 01/30/18 21:14 Pulse 90 01/30/18 21:14 Resp 20 01/30/18 21:14 BP 164/121 H 01/30/18 21:14 Pulse Ox 94 L 01/30/18 21:14 - Medical History PMH: Anxiety, Arthritis, Back Problems, Bipolar Disorder, Depression, Deep Vein Thrombosis (LEFT LEG 2013), Fractures, Gall Bladder Disease, HTN, Hyperch olesterolemia, Hypothyroidism, Kidney Stones, Migraine, Pulmonary Embolism (2013), Chronic Kidney Disease, Schizophrenia, Chronic Pain (Neck, Back, and Right Hip) Denies: HIV, Seizures, Sexually Transmitted Disease Surgical History: Cholecystectomy (2013) - [facility] Procedures ANESTH INJEC PERIPH NERV (01/12/14) ANESTH INJECT SYMP NERVE (05/18/14) ANESTH INJECT-SPIN CANAL (09/22/13) CERVICAL SPINE X-RAY NEC (09/22/13) CONTRAST PHLEBOGRAM-LEG (06/17/13) DETOXIFICATION SERVICES FOR SUBSTANCE ABUSE TREATMENT (10/22/16) INJECT STEROID (01/26/14) INJECT/INFUSE NEC (01/29/12) INJECT/INFUSE THROMBOLYTIC AGENT (06/17/13) INJECTION INTO JOINT (01/26/14) INTRASPIN NERVE ROOT DIV (10/20/13) LUMBOSAC SPINE X-RAY NEC (05/18/14) OTHER ENDOVASCULAR PROCEDURES ON OTHER VESSELS (06/17/13) PERIPH NERVE DESTRUCTION (10/20/13) PLICATION OF VENA CAVA (06/17/13) SPINAL CANAL INJECT NEC (09/22/13) SYMPATH NERVE INJECT NEC (09/04/11) VENA CAV ANGIOCARDIOGRAM (06/17/13) X-RAY NEC AND NOS (11/24/13) Family History: States: Unknown Family Hx - Social History Hx Tobacco Use: Yes Hx Alcohol Use: No Hx Substance Use: Yes - Immunization History Hx Tetanus Toxoid Vaccination: No Hx Influenza Vaccination: Yes Hx Pneumococcal Vaccination: Yes Review Of Systems Constitutional: Negative for: Fever, Chills Gastrointestinal: Negative for: Nausea, Vomiting Skin: Negative for: Rash Neurological: Negative for: Weakness Psych: Positive for: Depression. Negative for: Suicidal ideation (or homicidal) Physical Exam - Physical Exam Appears: Non-toxic, No Acute Distress Skin: Warm, Dry Head: Normacephalic Eye(s): bilateral: Normal Inspection Neck: Trachea Midline, Supple Chest: Symmetrical Cardiovascular: Rhythm Regular Respiratory: No Rales, No Rhonchi, No Wheezing Gastrointestinal/Abdominal: Bowel Sounds (active), Soft, No Tenderness, No Distention Extremity: Bilateral: Atraumatic, Normal Color And Temperature, Normal ROM Pulses: Left Dorsalis Pedis: Normal, Right Dorsalis Pedis: Normal Neurological/Psych: Oriented x3 Gait: Steady ED Course And Treatment - Laboratory Results Result Diagrams: 01/30/18 21:45 01/30/18 21:45 O2 Sat by Pulse Oximetry: 94 (RA) Progress Note: Blood work and urine sent. bingo worker notified and will evaluate patient. Disposition Discussed With : Chon De La Cruz Comment: accepted the pt on his service and took over the care at 12:43 AM Doctor Will See Patient In The: Hospital Counseled Patient/Family Regarding: Studies Performed, Diagnosis - Disposition Disposition: HOSPITALIZED Disposition Time: 21:24 Condition: FAIR Forms: [facility] ([place] Islander) - POA Present On Arrival: None - Clinical Impression Clinical Impression: Opioid use disorder, Bipolar 1 disorder - Scribe Statement The provider has reviewed the documentation as recorded by the Scribe (Maria Isabel Staley) Provider Attestation: All medical record entries made by the Scribe were at my direction and personally dictated by me. I have reviewed the chart and agree that the record accurately reflects my personal performance of the history, physical exam, medical decision making, and the department course for this patient. I have also personally directed, reviewed, and agree with the discharge instructions and disposition. Decision To Admit - Pt Status Changed To: Hospital Disposition Of: Inpatient - Admit Certification Admit to Inpatient:: After my assessment, the patient will require hospitalization for at least two midnights. This is because of the severity of symptoms shown, intensity of services needed, and/or the medical risk in this patient being treated as an outpatient. - InPatient: Physician Admission Certification: I certify that this patient requires 2 or more midnights of care for the following reason:: After my assessment, the patient will require hospitalization for at least two midnights. This is because of the severity of symptoms shown, intensity of services needed, and/or the medical risk in this patient being treated as an outpatient. - . Bed Request Type: Detox Admitting Physician: Chon De La Cruz Patient Diagnosis: Opioid use disorder, Bipolar 1 disorder
[2018-01-30 21:54] LABS: BASO % 0.7 % (0.0-2.0); EOS # 0.1 K/uL (0.0-0.7); EOS % 2.1 % (0.0-4.0); HEMOGLOBIN 11.4 g/dL (12.0-18.0); LYMPH # 2.2 K/uL (1.0-4.3); LYMPH % 31.5 % (20.0-40.0); MEAN CORPUSCULAR HEMOGLOBIN 32.9 pg (27.0-31.0); MEAN CORPUSCULAR HGB CONC 34.2 g/dL (33.0-37.0); MEAN PLATELET VOLUME 8.7 fL (7.2-11.7); MONO # 0.6 K/uL (0.0-0.8); MONO % 8.4 % (0.0-10.0); NEUT % 57.3 % (50.0-75.0); RBC 3.46 Mil/uL (4.40-5.90); RED CELL DISTRIBUTION WIDTH 14.1 % (11.5-14.5)
[2018-01-30 21:55] LABS: MEAN CELL VOLUME 96.3 fL (80.0-94.0)
[2018-01-30 22:02] LABS: ALB/GLOB RATIO 1.6 (1.0-2.1); ALBUMIN 4.5 g/dL (3.5-5.0); ALT/SGPT 29 U/L (21-72); AST/SGOT 26 U/L (17-59); BLOOD UREA NITROGEN 13 mg/dL (9-20); CALCIUM 9.5 mg/dl (8.6-10.4); GFR NON-AFRICAN AMERICAN > 60
[2018-01-30 22:19] LABS: URINE BILIRUBIN NEGATIVE (NEGATIVE); URINE BLOOD NEGATIVE (NEGATIVE); URINE CLARITY Clear (Clear); URINE COLOR YELLOW (YELLOW); URINE GLUCOSE (UA) NEGATIVE (Normal); URINE PROTEIN 2+ mg/dL (NEGATIVE); URINE UROBILINOGEN N mg/dL (0.2-1.0)
[2018-01-30 22:20] LABS: SQUAMOUS EPITHIAL < 1 /hpf (0-5); URINE BACTERIA RARE (<OCC); URINE LEUKOCYTE ESTERASE NEGATIVE Leu/uL (Negative)
[2018-01-30 22:23] LABS: BENZODIAZEPINES, UR NEGATIVE (NEGATIVE); PHENCYCLIDINE, UR NEGATIVE (NEGATIVE)
[2018-01-30 22:24] LABS: BARBITURATES, UR POSITIVE (NEGATIVE); OPIATES, UR POSITIVE (NEGATIVE)
[2018-01-31] MEDS ORDERED: Aluminum Hydroxide/Magnesium Hydroxide Susp (30 mL) PO PRN (01:48)
--- NOTE | 2018-01-31 03:02 | PCM.BM ---
<WilliamMarichuy chang Rayne - Last Filed: 01/31/18 03:01> Treatment Plan Problems - Problems identified on initial assessmt Opiate Dependence Date Initiated: 01/31/18 Time Initiated: 01:15 Assessment reference: NA Status: Active Treatment assets and liabiliti Patient Assests: ADL independent Patient Liabilities: substance abuse, medical problems - Milieu Protocol Maintain good personal hygiene: daily Encourage regular showers, daily Remind patient to perform daily oral care, daily Assist patient to perform ADL's Maintain personal safety: every shift Educate patient to report safety concerns to staff, every shift Monitor environment for contraband/sharps Medication safety: Monitor for expected outcome, potential side effects: every shift, Assess barriers to learning: every shift, Assess readiness for medication education: every shift <Lilian Morales - Last Filed: 01/31/18 08:43> - Diagnosis (1) Opioid use disorder Status: Acute Interventions: 01/31/18 08:43 * Assess 7x/week regarding severity of withdrawal * Educate regarding risks, benefits, side effects and alternatives of medications * Use Motivational Interviewing for abstinence * Use CBT for relapse prevention * Medication management for withdrawal symptoms * Encourage medication assisted treatment * <Deborah Howard - Last Filed: 02/01/18 10:47> Family Contact Family involvement: Famliy/SO not involved - Goals for Treatment Patient goals for treatment: Complete detox protocol and review aftercare options with counseling staff. Discharge/Continuing Care - Education Needs Education Needs: Patient Medication, Patient Diagnosis/Disease Process, Patient Coping Skills, Patient Anger Management skills, Patient Placement options, Patient Community resources - Discharge Discharge Criteria: No longer exhibiting s/s of withdrawal, Reduction of target symptoms Discharge to:: Other - Additional Comments 02/01/18 10:47 TBD - Treatment Team Participation Patient/Family/SO Statement: 02/01/18 10:47 "I don't know yet..." Discussed with Family/SO: No Was Patient/Family/SO present at Treatment Team Meeting: Yes
--- NOTE | 2018-01-31 08:38 | PCM.PSYCH ---
Initial Psychiatric Evaluation - Initial Psychiatric Evaluation Type of Admission: Voluntary Legal Status: Capacity Chief Complaint (in patient's own words): "I need detox" History of Present Illness and Precipitating Events: Pt is a 52 year old WM who is single with no children and living with his father, sister, and sister's family. Pt is not employed and is on disability. Pt presents with dependence on opiates and barbiturates for maintenance of pain associated with TMJ and migraines. Pt takes Fioricet for migraines every 4-6 hours daily as well as Klonopin 3 times daily. Pt has a history of bipolar disorder diagnosed 12 years ago. Pt describes his high as gambling and always being hyper and has been hospitalized 3 times because of it. Pt has been taking pain medications and occasional heroin for 20 years off and on. Pt was prescribed pain medication post a hip replacement which led to the abuse of the pain medication and then heroin. For the past 5 weeks, he has been injecting around 8 bags of heroin a day. He describes withdrawal sxs already Pt denies having ever taken Methadone or Suboxone as maintenance therapy. Denies alcohol use, Smokes 1 pack of cigarettes a day Past Medical History: Migraines, TMJ, DVT, Cocaine Detoxification at 25, Pain Medication Rehabilitation in 2001 for 3 years Medications: Fioricet, Xarelto, Losartan, Prilosec, Anbesol, Dane, Klonopin Surgical History: Hip replacement Psychiatric History: Bipolar d/o, likely ADHD Family History: Grandfather possible alcoholic Current Medications: Active Medications Generic Name Dose Route Start Last Admin Trade Name Freq PRN Reason Stop Dose Admin Acetaminophen 650 mg 01/31/18 01:49 01/31/18 07:37 Tylenol 325mg Tab PO 650 mg Q6 PRN Administration Pain, moderate (4-7) Al Hydrox/Mg Hydrox/Simethicone 30 ml 01/31/18 01:48 01/31/18 01:59 Maalox 30 Ml PO 30 ml Q8 PRN Administration Indigestion / Heartburn Clonidine HCl 0.1 mg 01/31/18 01:53 Catapres PO Q6 PRN withdrawal symptoms Hydroxyzine HCl 25 mg 01/31/18 01:52 Atarax PO Q6 PRN Anxiety Trazodone HCl 50 mg 01/31/18 01:46 01/31/18 01:59 Desyrel PO 50 mg HS PRN Administration Anxiety Past Psychiatric History - Past Psychiatric History Previous Treatment History: Inpatient Pertinent Medical Hx (Current Medical&Sleep Prob, Allergies): Allergies Allergy/AdvReac Type Severity Reaction Status Date / Time No Known Allergies Allergy Verified 11/06/17 11:05 Valsartan [Diovan] 80 mg PO DAILY 10/12/16 Levothyroxine [Levoxyl] 1.5 tab PO DAILY 10/22/16 Dane Carbonate [Lithobid] 300 mg PO TID 10/22/16 Rivaroxaban [Xarelto] 20 mg PO DAILY 10/22/16 Rosuvastatin Calcium [Crestor] 10 mg PO DAILY 10/22/16 QUEtiapine [SEROquel] 200 mg PO HS #30 tab 10/25/16 Clonazepam [Klonopin] 1 mg PO TID 12/15/16 Cyclobenzaprine [Cyclobenzaprine HCl] 10 mg PO TID #21 tab 11/26/17 Acetaminophen/Butalbital/Caf [Fioricet] 1 tab PO Q6 PRN 01/30/18 Review of Systems - Psychiatric Psychiatric: Abnormal Sleep Pattern, Anxiety, Behavioral Changes, Change in Appetite, Difficulty Concentrating, Irritability, Mood Swings, Panic Attacks. absent: Hallucinations, Homicidal Ideation, Paranoia, Suicidal Ideation Mental Status Examination - Personal Presentation Personal Presentation: Looks older than stated age - Affect Affect: Other (labile) - Motor Activity Motor Activity: Other (restless) - Reliability in Providing Information Reliability in Providing Information: Good - Speech Speech: Other (loose and pressured (somewhat)) - Mood Mood: Anxious - Formal Thought Process Formal Thought Process: Loosening of associations - Cognitive Functions Orientation: Person, Place, Situation, Time Sensorium: Alert Attention/Concentration: Easily distracted Estimate of Intelligence: Average Judgement: Intact, as evidence by: Insight regarding need for hospitalization Memory: Recent intact, as evidence by: Ability to recall events of the day, Remote intact, as evidenced by: Ability to recall historical events - Risk Risk: Withdrawal, Diminished functioning - Strength & Assets Inventory Strength & Assets Inventory: Family support, Cooperative - Limitations Limitations: Other DSM 5 DX - DSM 5 DSM 5 Diagnosis: Opioioid withdrawal Opioid use d/o - severe Sedative, 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 Plus, he has been on them "for years" He agreed to decrease the doses, though Seroquel instead of Dane - not clear if he benefited from Li or that he has type 1 Will monitor psych sxs Gabapentin refused As needed medications All risks, benefits and alternatives of the meds discussed, and the pt agreed and understood. Attend groups and activities Supportive therapy and psychoeducation AL for abstinence CBT for relapse prevention Encourage MAT Refer to rehab or IOP, and self-help groups Teach healthy lifestyle methods, i.e. diet, exercise, meditation Smoking cessation with AL Nicotine patch 34 min
[2018-01-31] MEDS ORDERED: Buprenorphine Hydrochloride 2 mg SL ONE ×2 (08:39→09:45)
[2018-01-31] MEDS: Pantoprazole 20 mg EC Tab PO SCH (10:04)
[2018-01-31] MEDS: Apap-Butalbital-Caffeine 325-50-40mg Tab PO PRN ×2 (10:58→18:58)
[2018-01-31] MEDS: Benzocaine 10% Oral Anesthetic (12 ml) MM PRN ×3 (10:59→19:22)
[2018-02-01] MEDS: Apap-Butalbital-Caffeine 325-50-40mg Tab PO PRN ×2 (04:21→13:11)
[2018-02-01] MEDS: Buprenorphine Hydrochloride 2 mg SL SCH (09:00)
[2018-02-01] MEDS: Benzocaine 10% Oral Anesthetic (12 ml) MM PRN ×3 (09:01→17:03)
[2018-02-01] MEDS: Pantoprazole 20 mg EC Tab PO SCH (09:02)
--- NOTE | 2018-02-01 13:43 | PCM.PYCHPN ---
Psychiatric Progress Note - Psychiatric Progress Note Patient seen today, length of contact: 16 min Patient Chief Complaint: "I am better" Problems Identified/Issues Discussed: The pt is seen, chart reviewed, case discussed with staff. The pt is compliant with medications and reports no side-effects. Symptoms are improving but needs more time to stabilize. Pt attends groups and activities. Support given, psycho-education provided. After care discussed. Medication Change: Yes (detox changes daily) Medical Record Reviewed: Yes Mental Status Examination - Cognitive Function Orientation: Person, Place, Situation, Time Memory: Intact Attention: WNL Concentration: Poor Association: WNL Fund of Knowledge: WNL - Mood Mood: Anxious - Affect Affect: Constricted, Other (labile) - Speech Speech: Appropriate - Formal Thought Process Formal Thought Process: Loosening of associations - Suicidal Ideation Suicidal Ideation: No - Homicidal Ideation Homicidal Ideation: No Goal/Treatment Plan - Goal/Treatment Plan Need for Continued Stay: Discharge may exacerbated symptoms, Severe functional impairment Progress Toward Problem(s) and Goals/Treatment Plan: Taper with Subutex He refused getting off barbs/benzos claiming he needed them medically and psychologically. Plus, he has been on them "for years" He agreed to decrease the doses, though Seroquel instead of [place] - not clear if he benefited from Li or that he has type 1 Will monitor psych sxs Gabapentin refused As needed medications All risks, benefits and alternatives of the meds discussed, and the pt agreed and understood. Attend groups and activities Supportive therapy and psychoeducation [place] for abstinence CBT for relapse prevention Encourage MAT Refer to rehab or IOP, and self-help groups Teach healthy lifestyle methods, i.e. diet, exercise, meditation Smoking cessation with [place] Nicotine patch
[2018-02-02] MEDS: Apap-Butalbital-Caffeine 325-50-40mg Tab PO PRN ×2 (00:33→08:24)
[2018-02-02] MEDS ORDERED: Levothyroxine 25 MCG TAB PO SCH ×2 (06:30→10:00)
[2018-02-02] MEDS: Pantoprazole 20 mg EC Tab PO SCH (09:02)
[2018-02-02] MEDS: Buprenorphine Hydrochloride 2 mg SL SCH (09:02)
--- NOTE | 2018-02-02 10:21 | PCM.PYCHDC ---
Mental Status Examination - Mental Status Examination Orientation: Person Discharge Summary - Discharge Note Consultations:: List each consultation separately and include: 1. Reason for request. 2. Findings. 3. Follow-up Summary of Hospital Course include:: 1. Description of specific treatment plan utilized for patients during their course of treatmen. 2. Summarize the time- course for resolution of acute symptoms and/or regressed behaviors. 3. Describe issues identified and worked on during hospitalization. 4. Describe medication utilized. 5. Describe medical problems identified and treated. 6. Reassessment of suicide risk Summary of Hospital Course: Pt is a 52 year old WM who is single with no children and living with his father, sister, and sister's family. Pt is not employed and is on disability. Pt presents with dependence on opiates and barbiturates for maintenance of pain associated with TMJ and migraines. Pt takes Fioricet for migraines every 4-6 hours daily as well as Klonopin 3 times daily. Pt has a history of bipolar disorder diagnosed 12 years ago. Pt describes his high as gambling and always being hyper and has been hospitalized 3 times because of it. Pt has been taking pain medications and occasional heroin for 20 years off and on. Pt was prescribed pain medication post a hip replacement which led to the abuse of the pain medication and then heroin. For the past 5 weeks, he has been injecting around 8 bags of heroin a day. He describes withdrawal sxs already Pt denies having ever taken Methadone or Suboxone as maintenance therapy. Denies alcohol use, Smokes 1 pack of cigarettes a day Past Medical History: Migraines, TMJ, DVT, Cocaine Detoxification at 25, Pain Medication Rehabilitation in 2001 for 3 years Medications: Fioricet, Xarelto, Losartan, Prilosec, Anbesol, [place], Klonopin Surgical History: Hip replacement Psychiatric History: Bipolar d/o, likely ADHD Family History: Grandfather possible alcoholic He will go to [facility] but first he will do Dr. Weir. - Diagnosis (1) Opioid use disorder Current Visit: Yes Status: Acute - Final Diagnosis (DSM 5) Condition upon Discharge: FAIR Disposition: HOME/ ROUTINE Follow-up Treatment Plan: Taper with Subutex He refused getting off barbs/benzos claiming he needed them medically and psychologically. Plus, he has been on them "for years" He agreed to decrease the doses, though Seroquel instead of [place] - not clear if he benefited from Li or that he has type 1 Will monitor psych sxs Gabapentin refused As needed medications All risks, benefits and alternatives of the meds discussed, and the pt agreed and understood. Attend groups and activities Supportive therapy and psychoeducation [place] for abstinence CBT for relapse prevention Encourage MAT Refer to rehab or IOP, and self-help groups Teach healthy lifestyle methods, i.e. diet, exercise, meditation Smoking cessation with [place] Nicotine patch
[2018-02-02 11:48] VITALS: BP 133/85; PULSE 66; RESP 19; TEMP 97.7; O2SAT 19
== END 2018-02-02 11:30 | disposition home or self-care (01) | DRG 885 ==
LOC: C.ER 20:57 → C.7D 01-31 00:44
DX: F31.81 Bipolar II disorder (principal); I12.9 Hypertensive chronic kidney disease with stage 1 through stage 4 chronic kidney disease, or unspecified chronic kidney disease; N18.9 Chronic kidney disease, unspecified; Z72.0 Tobacco use; F11.10 Opioid abuse, uncomplicated; F13.90 Sedative, hypnotic, or anxiolytic use, unspecified, uncomplicated; F90.9 Attention-deficit hyperactivity disorder, unspecified type; E03.9 Hypothyroidism, unspecified

== ENCOUNTER 2018-04-12 09:49 | Emergency (ER) | payer MEDICARE ==
[2018-04-12 10:01] VITALS: TEMP 98.5; BMI 32.5
[2018-04-12 14:06] VITALS: BP 146/86; PULSE 86; RESP 18; O2SAT 100
--- NOTE | 2018-04-12 14:26 | C.PDOC ---
History Of Present Illness 52 y/o male presents to the ER complaining of left leg swelling which has been present for the past few days. Patient states that he was diagnosed with DVT 8 years ago and he was prescribed Xarelto. Patient reports that he stopped taking Xarelto 2 weeks ago because he had dental work. Denies having fever, chills, cough, CP, SOB, and abdominal pain. Time Seen by Provider: 04/12/18 10:04 Chief Complaint (Nursing): Lower Extremity Problem/Injury History Per: Patient History/Exam Limitations: no limitations Onset/Duration Of Symptoms: Days Current Symptoms Are (Timing): Still Present Severity: Moderate Past Medical History Reviewed: Historical Data, Nursing Documentation, Vital Signs Vital Signs: Last Vital Signs Temp 98.5 F 04/12/18 14:05 Pulse 86 04/12/18 14:05 Resp 18 04/12/18 14:05 BP 146/86 04/12/18 14:05 Pulse Ox 100 04/12/18 14:05 - Medical History PMH: Anxiety, Arthritis, Back Problems, Bipolar Disorder, Depression, Deep Vein Thrombosis (LEFT LEG 2013), Fractures, Gall Bladder Disease, HTN, Hypercholesterolemia, Hypothyroidism, Kidney Stones, Migraine, Pulmonary Embolism (2013), Chronic Kidney Disease, Schizophrenia, Chronic Pain (Neck, Back, and Right Hip) Denies: Diabetes, Hepatitis, HIV, Seizures, Sexually Transmitted Disease Surgical History: Cholecystectomy (2013) - [facility] Procedures ANESTH INJEC PERIPH NERV (01/12/14) ANESTH INJECT SYMP NERVE (05/18/14) ANESTH INJECT-SPIN CANAL (09/22/13) CERVICAL SPINE X-RAY NEC (09/22/13) CONTRAST PHLEBOGRAM-LEG (06/17/13) DETOXIFICATION SERVICES FOR SUBSTANCE ABUSE TREATMENT (10/22/16) INJECT STEROID (01/26/14) INJECT/INFUSE NEC (01/29/12) INJECT/INFUSE THROMBOLYTIC AGENT (06/17/13) INJECTION INTO JOINT (01/26/14) INTRASPIN NERVE ROOT DIV (10/20/13) LUMBOSAC SPINE X-RAY NEC (05/18/14) OTHER ENDOVASCULAR PROCEDURES ON OTHER VESSELS (06/17/13) PERIPH NERVE DESTRUCTION (10/20/13) PLICATION OF VENA CAVA (06/17/13) SPINAL CANAL INJECT NEC (09/22/13) SYMPATH NERVE INJECT NEC (09/04/11) VENA CAV ANGIOCARDIOGRAM (06/17/13) X-RAY NEC AND NOS (11/24/13) Family History: States: No Known Family Hx - Social History Hx Tobacco Use: Yes Hx Alcohol Use: No Hx Substance Use: Yes - Immunization History Hx Tetanus Toxoid Vaccination: No Hx Influenza Vaccination: Yes Hx Pneumococcal Vaccination: Yes Review Of Systems Except As Marked, All Systems Reviewed And Found Negative. Constitutional: Negative for: Fever, Chills Cardiovascular: Negative for: Chest Pain Respiratory: Negative for: Shortness of Breath Musculoskeletal: Positive for: Other (left leg swelling) Physical Exam - Physical Exam Appears: Non-toxic, No Acute Distress Skin: Normal Color, Warm, Dry Head: Atraumatic, Normacephalic Eye(s): bilateral: Normal Inspection Nose: Normal Oral Mucosa: Moist Neck: Supple Chest: Symmetrical Cardiovascular: Rhythm Regular Respiratory: Normal Breath Sounds, No Rales, No Rhonchi, No Wheezing Gastrointestinal/Abdominal: Soft, No Tenderness, No Guarding, No Rebound Extremity: Normal ROM, No Tenderness, No Pedal Edema, No Swelling Neurological/Psych: Oriented x3, Normal Speech ED Course And Treatment O2 Sat by Pulse Oximetry: 100 (RA) Pulse Ox Interpretation: Normal Medical Decision Making Medical Decision Making: Plan: --Venous Duplex Scan- Low Ext Bi. Updates: Patient has been instructed to start taking Xarelto again. Patient has been discharged and instructed to follow up with PMD in 2-3 days. Disposition - Disposition Referrals: Parisa Sweeney, [Non-Staff] - Disposition: HOME/ ROUTINE Disposition Time: 13:40 Condition: GOOD Additional Instructions: OLIVER WEAVER JR, thank you for letting us take care of you today. The emergency medical care you received today was directed at your acute symptoms. If you were prescribed any medication, please fill it and take as directed. It may take several days for your symptoms to resolve. Return to the Emergency Department if your symptoms worsen, do not improve, or if you have any other problems. Please contact your doctor or call one of the physicians/clinics you have been referred to that are listed on the Patient Visit Information form that is included in your discharge packet. Bring any paperwork you were given at discharge with you along with any medications you are taking to your follow up visit. Our treatment cannot replace ongoing medical care by a primary care provider outside of the emergency department. Thank you for allowing the [facility] team to be part of your care today. Start taking your anti-coagulation medication today. Follow up with your primary care doctor in 2-3 days for re-evaluation and further management. Prescriptions: Acyclovir 5% [Zovirax] 1 cm TP BID #1 tube Instructions: Anti-Clotting Medicines: Direct Oral Anticoagulants Forms: [employer] (Yemeni) - Clinical Impression Clinical Impression: Leg pain - Scribe Statement The provider has reviewed the documentation as recorded by the Anastacia Garcia Provider Attestation: All medical record entries made by the Anastacia were at my direction and personally dictated by me. I have reviewed the chart and agree that the record accurately reflects my personal performance of the history, physical exam, medical decision making, and the department course for this patient. I have also personally directed, reviewed, and agree with the discharge instructions and disposition.
--- NOTE | 2018-04-13 11:55 | VASCLAB ---
Date of service: 04/12/2018 PROCEDURE: Lower Extremity Venous Duplex Exam. HISTORY: leg swelling r/o DVT PRIORS: None. TECHNIQUE: Bilateral common femoral, femoral, popliteal and posterior tibial, peroneal and great saphenous veins were evaluated. Flow was assessed with color Doppler, compressibility, assessment of phasic flow and augmentation response. Report prepared by Kim Arnett, CHON, RVS FINDINGS: RIGHT: 1. Common Femoral Vein: 1.1. Compressibility - Fully compressible: Thrombus - None : Flow - Phasic: Augmentation -Normal: Reflux - None. 2. Femoral Vein: 2.1. Compressibility - Fully compressible: Thrombus - None : Flow - Phasic: Augmentation -Normal: Reflux - None. 3. Popliteal Vein: 3.1. Compressibility - Fully compressible: Thrombus - None : Flow - Phasic: Augmentation -Normal: Reflux - None. 4. Posterior Tibial Vein: 4.1. Compressibility - Fully compressible: Thrombus - None: Flow - Phasic: Augmentation -Normal: Reflux - None. 5. Peroneal Vein: 5.1. Compressibility - Fully compressible: Thrombus - None: Flow - Phasic: Augmentation -Normal: Reflux - None. 6. Great Saphenous Vein: 6.1. Compressibility - Fully compressible: Thrombus - None: Flow - Phasic: Augmentation - Normal: Reflux - None. LEFT: 1. Common Femoral Vein: 1.1. Compressibility - Fully compressible: Thrombus - None: Flow - Phasic: Augmentation -Normal: Reflux - None. 2. Femoral Vein: 2.1. Compressibility - Fully compressible: Thrombus - None: Flow - Phasic: Augmentation -Normal: Reflux - None. 3. Popliteal Vein: 3.1. Compressibility - Fully compressible: Thrombus - None : Flow - Phasic: Augmentation -Normal: Reflux - None. 4. Posterior Tibial Vein: 4.1. Compressibility - Fully compressible: Thrombus - None: Flow - Phasic: Augmentation -Normal: Reflux - None. 5. Peroneal Vein: 5.1. Compressibility - Fully compressible: Thrombus - None: Flow - Phasic: Augmentation -Normal: Reflux - None. 6. Great Saphenous Vein: 6.1. Compressibility - Fully compressible: Thrombus - None: Flow - Phasic: Augmentation - Normal: Reflux - None. OTHER FINDINGS: Right: None significant. Left: None significant. IMPRESSION: Right: No evidence of deep or superficial vein thrombosis of the right lower extremity. Normal valve function noted of the right side. Left: No evidence of deep or superficial vein thrombosis of the left lower extremity. Normal valve function noted of the left side.
== END 2018-04-12 14:06 | disposition home or self-care (01) ==
LOC: C.ER 09:49
DX: M79.605 Pain in left leg (principal); E03.9 Hypothyroidism, unspecified; E78.00 Pure hypercholesterolemia, unspecified; F20.9 Schizophrenia, unspecified; I12.9 Hypertensive chronic kidney disease with stage 1 through stage 4 chronic kidney disease, or unspecified chronic kidney disease; N18.9 Chronic kidney disease, unspecified; Z72.0 Tobacco use

== ENCOUNTER 2018-07-09 15:57 | Emergency (ER) | payer MEDICARE ==
[2018-07-09 16:11] VITALS: BMI 32.3
[2018-07-09] MEDS ORDERED: Sodium Chloride 0.9% 1,000 ML IV STA (16:57)
--- NOTE | 2018-07-09 17:53 | CT ---
Date of service: 07/09/2018 PROCEDURE: CT HEAD WITHOUT CONTRAST. HISTORY: headache COMPARISON: Comparison is made with 11/26/2017 TECHNIQUE: Axial computed tomography images were obtained through the head/brain without intravenous contrast. Radiation dose: Total exam DLP = 1244.31 mGy-cm. This CT exam was performed using one or more of the following dose reduction techniques: Automated exposure control, adjustment of the mA and/or kV according to patient size, and/or use of iterative reconstruction technique. FINDINGS: HEMORRHAGE: No intracranial hemorrhage. BRAIN: No mass effect or edema. No atrophy or chronic microvascular ischemic changes. VENTRICLES: Unremarkable. No hydrocephalus. CALVARIUM: Unremarkable. PARANASAL SINUSES: Unremarkable as visualized. No significant inflammatory changes. MASTOID AIR CELLS: Unremarkable as visualized. No inflammatory changes. OTHER FINDINGS: None. IMPRESSION: No evidence of acute intracranial hemorrhage mass effect or midline shift.
--- NOTE | 2018-07-09 18:19 | C.PDOC ---
History Of Present Illness 53 years old male, well known to ER with multiple past visits, presents to ED for complaints of headache associated with blurred vision and nausea. Patient states he has PMHx of chronic headaches. Patient reports he was seen by a neurologist 8 months ago and an MRI was done with normal results. Patient also reports he took Botox every 12 weeks which relieved headaches, however patient states headache worsened 3 days ago. Patient reports taking Tylenol, Motrin, and Imitrex with no relief. Patient reports last botox injection was 3 weeks ago. Denies any other complaints at this time. Time Seen by Provider: 07/09/18 16:21 Chief Complaint (Nursing): Headache History Per: Patient History/Exam Limitations: no limitations Onset/Duration Of Symptoms: Hrs Current Symptoms Are (Timing): Still Present Preceeding Symptoms: Visual Disturbances, Known Migraine Symptoms Associated Symptoms: Blurred Vision, Nausea Recent travel outside of the [place]: No Past Medical History Reviewed: Historical Data, Nursing Documentation, Vital Signs Vital Signs: Last Vital Signs Temp 99.1 F 07/09/18 16:04 Pulse 80 07/09/18 16:04 Resp 16 07/09/18 16:04 BP 113/79 07/09/18 16:04 Pulse Ox 97 07/09/18 16:04 - Medical History PMH: Anxiety, Arthritis, Back Problems, Bipolar Disorder, Depression, Deep Vein Thrombosis (LEFT LEG 2013), Fractures, Gall Bladder Disease, HTN, Hypercholesterolemia, Hypothyroidism, Kidney Stones, Migraine, Pulmonary Embolism (2013), Chronic Kidney Disease, Schizophrenia, Chronic Pain (Neck, Back, and Right Hip) Surgical History: Cholecystectomy (2013) - [facility] Procedures ANESTH INJEC PERIPH NERV (01/12/14) ANESTH INJECT SYMP NERVE (05/18/14) ANESTH INJECT-SPIN CANAL (09/22/13) CERVICAL SPINE X-RAY NEC (09/22/13) CONTRAST PHLEBOGRAM-LEG (06/17/13) DETOXIFICATION SERVICES FOR SUBSTANCE ABUSE TREATMENT (10/22/16) INJECT STEROID (01/26/14) INJECT/INFUSE NEC (01/29/12) INJECT/INFUSE THROMBOLYTIC AGENT (06/17/13) INJECTION INTO JOINT (01/26/14) INTRASPIN NERVE ROOT DIV (10/20/13) LUMBOSAC SPINE X-RAY NEC (05/18/14) OTHER ENDOVASCULAR PROCEDURES ON OTHER VESSELS (06/17/13) PERIPH NERVE DESTRUCTION (10/20/13) PLICATION OF VENA CAVA (06/17/13) SPINAL CANAL INJECT NEC (09/22/13) SYMPATH NERVE INJECT NEC (09/04/11) VENA CAV ANGIOCARDIOGRAM (06/17/13) X-RAY NEC AND NOS (11/24/13) Family History: States: Unknown Family Hx - Social History Hx Tobacco Use: Yes Hx Alcohol Use: No Hx Substance Use: Yes ("occasionally" as per patient) - Immunization History Hx Tetanus Toxoid Vaccination: No Hx Influenza Vaccination: Yes Hx Pneumococcal Vaccination: Yes Review Of Systems Except As Marked, All Systems Reviewed And Found Negative. Constitutional: Negative for: Fever, Chills Gastrointestinal: Positive for: Nausea. Negative for: Vomiting, Diarrhea Skin: Negative for: Rash Neurological: Positive for: Headache. Negative for: Weakness, Numbness Physical Exam - Physical Exam Appears: Non-toxic, No Acute Distress Skin: Normal Color, Warm, Dry, No Rash Head: Atraumatic, Normacephalic Eye(s): bilateral: Normal Inspection, PERRL, EOMI Oral Mucosa: Moist Neck: Normal ROM, Supple Chest: Symmetrical, No Tenderness Cardiovascular: Rhythm Regular, No Murmur Respiratory: Normal Breath Sounds, No Rales, No Rhonchi, No Wheezing Gastrointestinal/Abdominal: Soft, No Tenderness Extremity: Normal ROM Extremity: Bilateral: Atraumatic, Normal Color And Temperature, Normal ROM Pulses: Left Radial: Normal, Right Radial: Normal Neurological/Psych: Oriented x3, Normal Speech, Normal Motor, Normal Sensation, Normal Reflexes, Other (No focal deificts ) Gait: Steady ED Course And Treatment O2 Sat by Pulse Oximetry: 97 (RA) Pulse Ox Interpretation: Normal - CT Scan/US CT Head Other Rad Studies (CT/US): Read By Radiologist, Radiology Report Reviewed CT/US Interpretation: Date of service: 07/09/2018. PROCEDURE: CT HEAD WITHOUT CONTRAST. HISTORY: headache. COMPARISON: Comparison is made with 11/26/2017. TECHNIQUE: Axial computed tomography images were obtained through the head/brain without intravenous contrast. Radiation dose: Total exam DLP = 1244.31 mGy-cm. This CT exam was performed using one or more of the following dose reduction techniques: Automated exposure control, adjustment of the mA and/or kV according to patient size, and/or use of iterative reconstruction technique. FINDINGS: HEMORRHAGE: No intracranial hemorrhage. BRAIN: No mass effect or edema. No atrophy or chronic microvascular ischemic changes. VENTRICLES: Unremarkable. No hydrocephalus. CALVARIUM: Unremarkable. PARANASAL SINUSES: Unremarkable as visualized. No significant inflammatory changes. MASTOID AIR CELLS: Unremarkable as visualized. No inflammatory changes. OTHER FINDINGS: None. IMPRESSION: No evidence of acute intracranial hemorrhage mass effect or midline shift. CT Sinuses Other Rad Studies (CT/US): Read By Radiologist, Radiology Report Reviewed CT/US Interpretation: Date of service: 07/09/2018. PROCEDURE: CT SINUSES WITHOUT CONTRAST. HISTORY: headache. COMPARISON: None available. TECHNIQUE: Contiguous axial CT images of the paranasal sinuses were obtained. Coronal and sagittal reformats were generated. Radiation dose: Total exam DLP = 740.44 mGy-cm. This CT exam was performed using one or more of the following dose reduction techniques: Automated exposure control, adjustment of the mA and/or kV according to patient size, and/or use of iterative reconstruction technique. FINDINGS: FRONTAL SINUSES: No evidence of significant mucosal thickening. ETHMOID SINUSES: No evidence of significant mucosal thickening. SPHENOID SINUSES: No evidence of significant sinusitis. MAXILLARY SINUSES: No evidence of significant mucosal thickening. SINUS DRAINAGE: Osteomeatal complexes, frontal recesses and sphenoethmoid recesses clear. NASAL SEPTUM: No significant deviation. No destructive lesion. MASS: None. SKULL BASE: Unremarkable. TEMPORAL BONES: Middle ears and mastoid grossly unremarkable. OTHER FINDINGS: None. IMPRESSION: No CT evidence of acute sinusitis. Progress Note: Administered IV Fluids, Toradol, Reglan. Ordered CT Head and sinuses. On re-evaluation patient feels better and is stable to be d/c home with PMD follow up. Disposition - Disposition Disposition: HOME/ ROUTINE Disposition Time: 18:52 Condition: IMPROVED Additional Instructions: Follow up with PMD and Neurologist within 1-2 days. Return to Ed if feel worse. Instructions: Headache, Adult (DC) Forms: [employer] (Kyrgyz) - Clinical Impression Clinical Impression: Headache - PA / LSW / Resident Statement MD/DO has reviewed & agrees with the documentation as recorded. - Scribe Statement The provider has reviewed the documentation as recorded by the Scribe Tia Fajardo All medical record entries made by the Scribe were at my direction and personal ly dictated by me. I have reviewed the chart and agree that the record accurately reflects my personal performance of the history, physical exam, medical decision making, and the department course for this patient. I have also personally directed, reviewed, and agree with the discharge instructions and disposition.mynor
--- NOTE | 2018-07-09 18:43 | CT ---
Date of service: 07/09/2018 PROCEDURE: CT SINUSES WITHOUT CONTRAST HISTORY: headache COMPARISON: None available. TECHNIQUE: Contiguous axial CT images of the paranasal sinuses were obtained. Coronal and sagittal reformats were generated. Radiation dose: Total exam DLP = 740.44 mGy-cm. This CT exam was performed using one or more of the following dose reduction techniques: Automated exposure control, adjustment of the mA and/or kV according to patient size, and/or use of iterative reconstruction technique. FINDINGS: FRONTAL SINUSES: No evidence of significant mucosal thickening ETHMOID SINUSES: No evidence of significant mucosal thickening. SPHENOID SINUSES: No evidence of significant sinusitis MAXILLARY SINUSES: No evidence of significant mucosal thickening. SINUS DRAINAGE: Osteomeatal complexes, frontal recesses and sphenoethmoid recesses clear. NASAL SEPTUM: No significant deviation. No destructive lesion. MASS: None. SKULL BASE: Unremarkable. TEMPORAL BONES: Middle ears and mastoid grossly unremarkable. OTHER FINDINGS: None. IMPRESSION: No CT evidence of acute sinusitis.
[2018-07-09 19:00] VITALS: BP 142/78; PULSE 89; RESP 18; TEMP 97
[2018-07-10 12:08] VITALS: O2SAT 97
== END 2018-07-09 19:00 | disposition home or self-care (01) ==
LOC: C.ER 15:57
DX: R51 Headache (principal); E03.9 Hypothyroidism, unspecified; E78.00 Pure hypercholesterolemia, unspecified; F20.9 Schizophrenia, unspecified; I12.9 Hypertensive chronic kidney disease with stage 1 through stage 4 chronic kidney disease, or unspecified chronic kidney disease; N18.9 Chronic kidney disease, unspecified; Z72.0 Tobacco use
CPT/HCPCS: 70450; 70486; 96374; 96375; 99283; J1885; J2765; J7030

== ENCOUNTER 2018-07-12 13:26 | Emergency (ER) | payer MEDICARE ==
[2018-07-12 13:36] VITALS: BMI 32.1
[2018-07-12 13:41] VITALS: BP 125/77; PULSE 72; RESP 18; TEMP 98.3; O2SAT 97
[2018-07-12] MEDS ORDERED: Apap-Butalbital-Caffeine 325-50-40mg Tab PO STA (14:14)
[2018-07-12] MEDS ORDERED: Naproxen 550 mg Tab PO STA (14:14)
[2018-07-12] MEDS ORDERED: Naproxen 550 mg Tab PO ONE (14:23)
[2018-07-12] MEDS ORDERED: Apap-Butalbital-Caffeine 325-50-40mg Tab ONE (14:24)
--- NOTE | 2018-07-12 14:33 | C.PDOC ---
Time Seen by Provider: 07/12/18 13:59 Chief Complaint (Nursing): Headache History Per: Patient Onset/Duration Of Symptoms: Days, Intermittent Episodes Current Symptoms Are (Timing): Still Present Severity: Moderate Quality: "Pain" Additional History Per: Prior Records Past Medical History Reviewed: Historical Data, Nursing Documentation, Vital Signs Vital Signs: Last Vital Signs Temp 98.3 F 07/12/18 13:36 Pulse 72 07/12/18 13:36 Resp 18 07/12/18 13:36 BP 125/77 07/12/18 13:36 Pulse Ox 97 07/12/18 13:36 - Medical History PMH: Anxiety, Arthritis, Back Problems, Bipolar Disorder, Depression, Deep Vein Thrombosis (LEFT LEG 2013), Fractures, Gall Bladder Disease, HTN, Hypercholesterolemia, Hypothyroidism, Kidney Stones, Migraine, Pulmonary Embolism (2013), Chronic Kidney Disease, Schizophrenia, Chronic Pain (Neck, Back, and Right Hip) Denies: Sexually Transmitted Disease Surgical History: Cholecystectomy (2013) - [facility] Procedures ANESTH INJEC PERIPH NERV (01/12/14) ANESTH INJECT SYMP NERVE (05/18/14) ANESTH INJECT-SPIN CANAL (09/22/13) CERVICAL SPINE X-RAY NEC (09/22/13) CONTRAST PHLEBOGRAM-LEG (06/17/13) DETOXIFICATION SERVICES FOR SUBSTANCE ABUSE TREATMENT (10/22/16) INJECT STEROID (01/26/14) INJECT/INFUSE NEC (01/29/12) INJECT/INFUSE THROMBOLYTIC AGENT (06/17/13) INJECTION INTO JOINT (01/26/14) INTRASPIN NERVE ROOT DIV (10/20/13) LUMBOSAC SPINE X-RAY NEC (05/18/14) OTHER ENDOVASCULAR PROCEDURES ON OTHER VESSELS (06/17/13) PERIPH NERVE DESTRUCTION (10/20/13) PLICATION OF VENA CAVA (06/17/13) SPINAL CANAL INJECT NEC (09/22/13) SYMPATH NERVE INJECT NEC (09/04/11) VENA CAV ANGIOCARDIOGRAM (06/17/13) X-RAY NEC AND NOS (11/24/13) Family History: States: Unknown Family Hx - Social History Hx Tobacco Use: Yes Hx Alcohol Use: No Hx Substance Use: Yes - Immunization History Hx Tetanus Toxoid Vaccination: No Hx Influenza Vaccination: Yes Hx Pneumococcal Vaccination: No Review Of Systems Except As Marked, All Systems Reviewed And Found Negative. Constitutional: Negative for: Fever, Weakness Eyes: Negative for: Vision Change ENT: Negative for: Ear Pain Cardiovascular: Negative for: Chest Pain Respiratory: Negative for: Shortness of Breath Gastrointestinal: Negative for: Vomiting, Abdominal Pain Musculoskeletal: Negative for: Neck Pain Skin: Negative for: Rash Neurological: Positive for: Headache. Negative for: Weakness, Numbness, Incoordination, Change in Speech, Confusion, Seizures, Altered Mental Status, Dizziness Physical Exam - Physical Exam Appears: Non-toxic, No Acute Distress Skin: Normal Color, Warm, Dry, No Rash Head: Atraumatic, Normacephalic Eye(s): bilateral: PERRL, EOMI Neck: Normal ROM, Supple Extremity: Normal ROM Neurological/Psych: Oriented x3, Normal Speech, Normal Cognition, No Cerebellar Signs, Normal Motor, Normal Sensation ED Course And Treatment O2 Sat by Pulse Oximetry: 97 Pulse Ox Interpretation: Normal Progress Note: Patient states that he has an appointment with his Neurologist this Wednesday. Reassessment Condition: Improved Disposition Counseled Patient/Family Regarding: Diagnosis, Need For Followup, Rx Given - Disposition Referrals: Aniket Combs MD [Staff Provider] - Disposition: HOME/ ROUTINE Disposition Time: 14:34 Condition: STABLE Additional Instructions: Follow up with your Neurologist as scheduled in 3 days for further evaluation and treatment. Return to the ER if you develop weakness, numbness, vomiting, worsening of symptoms or if you have any other concerns. Prescriptions: Acetaminophen/Butalbital/Caf [Fioricet] 1 tab PO Q4 PRN #30 tab PRN Reason: Headache Instructions: Headache, Adult (DC) - Clinical Impression Clinical Impression: Generalized headaches
== END 2018-07-12 14:47 | disposition home or self-care (01) ==
LOC: C.ER 13:26
DX: R51 Headache (principal)
CPT/HCPCS: 96372; 99284; J2765

== ENCOUNTER 2018-07-13 04:05 | Emergency (ER) | payer MEDICARE ==
[2018-07-13 04:06] VITALS: BMI 32.1
[2018-07-13 04:16] VITALS: BP 137/79; PULSE 66; RESP 22; TEMP 97.5; O2SAT 100
[2018-07-13] MEDS ORDERED: Apap-Butalbital-Caffeine 325-50-40mg Tab PO STA (04:50)
--- NOTE | 2018-07-13 04:52 | C.PDOC ---
History Of Present Illness 53 year old male with PMHx of migraines presents to the ED c/o chronic headache. Patient was seen in the ED yesterday for same symptoms, patient was prescribed fioricet. Patient reports he has not been able to fill his prescriptions presents for evaluation. Patient denies fever, chills, visual changes, photophobia, nausea, vomit, dizziness, neck pain, weakness, numbness. Time Seen by Provider: 07/13/18 04:26 Chief Complaint (Nursing): Headache History Per: Patient History/Exam Limitations: no limitations Onset/Duration Of Symptoms: Days Current Symptoms Are (Timing): Still Present Quality: "Pain" Preceeding Symptoms: Known Migraine Symptoms Associated Symptoms: denies: Photophobia, Blurred Vision, Nausea Recent travel outside of the [place]: No Additional History Per: Patient Past Medical History Reviewed: Historical Data, Nursing Documentation, Vital Signs Vital Signs: Last Vital Signs Temp 97.5 F L 07/13/18 04:10 Pulse 66 07/13/18 04:10 Resp 22 07/13/18 04:10 BP 137/79 07/13/18 04:10 Pulse Ox 100 07/13/18 04:10 - Medical History PMH: Anxiety, Arthritis, Back Problems, Bipolar Disorder, Depression, Deep Vein Thrombosis (LEFT LEG 2013), Fractures, Gall Bladder Disease, HTN, Hypercholesterolemia, Hypothyroidism, Kidney Stones, Migraine, Pulmonary Embolism (2013), Chronic Kidney Disease, Schizophrenia, Chronic Pain (Neck, Back, and Right Hip) Denies: Sexually Transmitted Disease Surgical History: Cholecystectomy (2013) [facility] Procedures ANESTH INJEC PERIPH NERV (01/12/14) ANESTH INJECT SYMP NERVE (05/18/14) ANESTH INJECT-SPIN CANAL (09/22/13) CERVICAL SPINE X-RAY NEC (09/22/13) CONTRAST PHLEBOGRAM-LEG (06/17/13) DETOXIFICATION SERVICES FOR SUBSTANCE ABUSE TREATMENT (10/22/16) INJECT STEROID (01/26/14) INJECT/INFUSE NEC (01/29/12) INJECT/INFUSE THROMBOLYTIC AGENT (06/17/13) INJECTION INTO JOINT (01/26/14) INTRASPIN NERVE ROOT DIV (10/20/13) LUMBOSAC SPINE X-RAY NEC (05/18/14) OTHER ENDOVASCULAR PROCEDURES ON OTHER VESSELS (06/17/13) PERIPH NERVE DESTRUCTION (10/20/13) PLICATION OF VENA CAVA (06/17/13) SPINAL CANAL INJECT NEC (09/22/13) SYMPATH NERVE INJECT NEC (09/04/11) VENA CAV ANGIOCARDIOGRAM (06/17/13) X-RAY NEC AND NOS (11/24/13) Family History: States: Unknown Family Hx - Social History Hx Tobacco Use: Yes Hx Alcohol Use: No Hx Substance Use: Yes - Immunization History Hx Tetanus Toxoid Vaccination: No Hx Influenza Vaccination: Yes Hx Pneumococcal Vaccination: No Review Of Systems Constitutional: Negative for: Fever, Chills Eyes: Negative for: Vision Change Cardiovascular: Negative for: Chest Pain Respiratory: Negative for: Shortness of Breath Gastrointestinal: Negative for: Nausea, Vomiting, Abdominal Pain Skin: Negative for: Rash Neurological: Positive for: Headache. Negative for: Weakness, Numbness, Dizziness Physical Exam - Physical Exam Appears: Non-toxic, No Acute Distress Skin: Normal Color, Warm, Dry Head: Atraumatic, Normacephalic Eye(s): bilateral: Normal Inspection, PERRL, EOMI Oral Mucosa: Moist Neck: Normal ROM, No Midline Cervical Tenderness, Supple, Other (no meningeal signs) Chest: Symmetrical Cardiovascular: Rhythm Regular Respiratory: Normal Breath Sounds, No Rales, No Rhonchi, No Wheezing Gastrointestinal/Abdominal: Soft, No Tenderness Extremity: Normal ROM, No Tenderness, No Swelling Neurological/Psych: Oriented x3, Normal Speech, Normal Cognition, Other (non focal) Gait: Steady ED Course And Treatment O2 Sat by Pulse Oximetry: 100 (ON RA) Pulse Ox Interpretation: Normal Progress Note: Patient in the ED comfortable in no acute distress, spekaing fast eloquently with no signs of neruological deficits. Patient advised to fill the prescriptions given to him during his last visit to the ED. Disposition Counseled Patient/Family Regarding: Diagnosis, Need For Followup, Rx Given - Disposition Referrals: [facility] [Outside] Disposition: HOME/ ROUTINE Disposition Time: 04:51 Condition: STABLE Additional Instructions: Please follwo up with your PCP or neurologist Please fill out your fioricet prescription Return if any concerns Instructions: Migraine Headache (DC) Forms: [employer] (Romanian) - Clinical Impression Clinical Impression: Migraine - PA / COAT CUTTER / Resident Statement MD/DO has reviewed & agrees with the documentation as recorded. - Scribe Statement The provider has reviewed the documentation as recorded by the Scribe Simone Sifuentes All medical record entries made by the Scribe were at my direction and personally dictated by me. I have reviewed the chart and agree that the record accurately reflects my personal performance of the history, physical exam, medical decision making, and the department course for this patient. I have also personally directed, reviewed, and agree with the discharge instructions and disposition.
[2018-07-13] MEDS ORDERED: Apap-Butalbital-Caffeine 325-50-40mg Tab ONE (05:00)
== END 2018-07-13 05:01 | disposition home or self-care (01) ==
LOC: C.ER 04:05
DX: G43.909 Migraine, unspecified, not intractable, without status migrainosus (principal); E78.00 Pure hypercholesterolemia, unspecified; F20.9 Schizophrenia, unspecified; E03.9 Hypothyroidism, unspecified; I12.9 Hypertensive chronic kidney disease with stage 1 through stage 4 chronic kidney disease, or unspecified chronic kidney disease; N18.9 Chronic kidney disease, unspecified; Z72.0 Tobacco use

== ENCOUNTER 2018-08-25 06:29 | Day surgery (SDC) | payer MEDICARE ==
[2018-08-24 12:25] VITALS: BMI 29.8
[2018-08-25 07:12] VITALS: RESP 18; O2SAT 100
[2018-08-25] MEDS ORDERED: Propofol 10 mg/ml Inj (20 ML) ONE ×2 (08:37→09:14)
[2018-08-25] MEDS ORDERED: Midazolam 2 MG/2 ML VIAL ONE ×2 (08:37)
[2018-08-25] MEDS ORDERED: Lidocaine Hydrochloride 5 ML INJ ONE (08:55)
[2018-08-25 10:40] VITALS: BP 119/63; PULSE 65; TEMP 97.3
== END 2018-08-25 10:20 | disposition home or self-care (01) ==
LOC: C.ENDO 06:29
PROVIDERS: ATTEND Internal Medicine Gastroenterology
DX: Z12.11 Encounter for screening for malignant neoplasm of colon (principal); D12.4 Benign neoplasm of descending colon; K64.1 Second degree hemorrhoids; K22.70 Barrett's esophagus without dysplasia; B37.81 Candidal esophagitis; K21.0 Gastro-esophageal reflux disease with esophagitis; K29.70 Gastritis, unspecified, without bleeding; K31.9 Disease of stomach and duodenum, unspecified; R10.13 Epigastric pain; I10 Essential (primary) hypertension; F31.9 Bipolar disorder, unspecified; F41.9 Anxiety disorder, unspecified; F11.20 Opioid dependence, uncomplicated; Z79.899 Other long term (current) drug therapy; F17.210 Nicotine dependence, cigarettes, uncomplicated
CPT/HCPCS: 43239; 45380; 45385; 88305; 88312; 88313; 88342; J2250; J2704